=== PATIENT | female | born 1990 | race Two or more races ===

== ENCOUNTER 2024-06-01 20:32 | Observation (INO) | payer MEDICAID, SELFPAY ==
[2024-06-01] VITALS (15 sets, daily range): BP systolic 115–138; BP diastolic 73–90; PULSE 64–85; RESP 16–99; TEMP 36.8; O2SAT 98; BMI 23.9; BMI 25.3
--- NOTE | 2024-06-01 18:45 | PC.NURSE ---
CALLED OB AND WAS TOLD FOR US TO CLEAR PT AND THEN SEND HER UP TO THEM.
--- NOTE | 2024-06-01 19:28 | EKG_ITS ---
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
[2024-06-01] MEDS: RINGERS LACTATED 1000 ML 1,000 ML 999 ML IV (21:38)
[2024-06-01 22:07] LABS: Collection Type, Urine Clean Catch
[2024-06-01 22:16] LABS: Basophils % (Auto) 0 % (0-2.5); Eosinophils # (Auto) 0.1 Thou/mm3 (0.0-0.5); Eosinophils % (Auto) 1 % (0-10); Hematocrit 35.3 % (36.0-46.0); Hemoglobin 12.1 g/dL (12.0-16.0); Immature Granulocytes % (Auto) 1 % (0-0); Immature Granulocytes Auto 0.06 Thou/mm3 (0.00-0.00); Lymphocytes # (Auto) 2.9 Thou/mm3 (1.0-4.8); Lymphocytes % (Auto) 29 % (10-50); Mean Corpuscular HGB Conc 34.3 g/dl (31.0-37.0); Mean Corpuscular Hemoglobin 32.5 pg (25.0-35.0); Mean Corpuscular Volume 95 fL (80-100); Monocytes # (Auto) 1.2 Thou/mm3 (0.0-0.8); Monocytes % (Auto) 12 % (0-12); Neutrophils # (Auto) 5.7 Thou/mm3 (1.8-7.7); Neutrophils % (Auto) 58 % (37-80); Nucleated Red Blood Cell % 0 /100 WBC (0); Platelet Count 227 Thou/mm3 (140-440); RDW Standard Deviation 43.8 fL (36.4-46.3); Red Blood Count 3.72 Miln/mm3 (4.00-5.20); White Blood Count 9.9 Thou/mm3 (3.6-11.0)
[2024-06-01 22:21] LABS: Bilirubin,Urine Negative (Negative); Blood,Urine Negative (Negative); Clarity,Urine Clear (Clear/Hazy); Color,Urine Lt-Yellow (Lt Yel-Yel); Glucose, Urine Negative (Negative); Ketones,Urine Negative (Negative); Leukocyte Esterase,Urine Negative (Negative); Nitrite,Urine Negative (Negative); Protein,Urine Negative (Neg - Trace); RBC,Urine < 1 /hpf (0-3); Specific Gravity,Urine 1.011 (1.001-1.035); Squamous Epithelial Cell,Urine 1 /hpf (0-5); Urobilinogen,Urine Negative mg/dL (0.0-1.0); WBC,Urine 1 /hpf (0-5)
[2024-06-01] MEDS: ACETAMINOPHEN 500 MG TABLET 1000 MG PO (22:42)
[2024-06-01] MEDS: RINGERS LACTATED 1000 ML 1,000 ML 100 ML IV (22:42)
[2024-06-01 22:43] LABS: Fibrinogen 392 mg/dL (175-375); INR 0.9 (0.9-1.3); Partial Thromboplastin Time 23.1 Seconds (22.0-36.0); Prothrombin Time 10.3 Seconds (9.0-12.2)
[2024-06-01 22:52] LABS: Creatinine,Random Urine 50 mg/dL (30-125); Protein Total, Random Urine 7 mg/dL (1-14)
[2024-06-01 23:49] LABS: Alanine Aminotransferase < 7 U/L (10-49); Albumin, Serum 3.8 gm/dL (3.5-5.0); Albumin/Globulin Ratio 1.3 (1.2-2.2); Alkaline Phosphatase 85 U/L (46-116); Anion Gap 10 (7-16); Aspartate Amino Transferase < 8 U/L (0-34); BUN/Creatinine Ratio 13 Ratio (12-20); Bilirubin,Total 0.6 mg/dL (0.3-1.2); Blood Urea Nitrogen 8 mg/dL (9-23); Calcium 9.6 mg/dL (8.3-10.6); Calcium (Corrected) 9.8 mg/dL (8.5-10.1); Carbon Dioxide 23.7 mMol/L (20.0-31.0); Chloride 108 mMol/L (98-107); Creatinine (Component) 0.6 mg/dL (0.6-1.3); Estimated Creatinine Clearance 121.9 mL/min (>60); Globulin 2.9 gm/dL (2.3-3.5); Glucose 89 mg/dL (74-106); Osmolality,Calculated 280 (275-295); Potassium 4.1 mMol/L (3.4-5.1); Sodium 142 mMol/L (136-145); Total Protein 6.7 gm/dL (5.7-8.2); eGFR > 60 See Note
[2024-06-02 00:16] LABS: LDH (Lactate Dehydrogenase) 152 U/L (120-246); Uric Acid 4.7 mg/dL (3.1-7.8)
--- NOTE | 2024-06-02 05:44 | PD.EDHA ---
ED Headache RME/HPI General Chief Complaint: Headache Stated Complaint: BLURRY VISION, SEVERE HEADACHE, PREG 31WKS Time Seen by Provider: 06/01/24 19:28 Arrival date/time: 34F with history of gestational HTN presents to ED with 1 day of TYLER, blurry vision, and generalized body paresthesia, as well as SOB and cough. Patient denies AMS, seizures, and slurred speech. Mild pelvic pain, but patient denies vaginal bleeding and dysuria. Patient is currently 31 weeks . Limitations: no limitations Related Data Home Medications ?Medication ?Instructions ?Recorded ?Confirmed aspirin 81 mg tablet,delayed 81 mg PO QDAY 05/10/19 06/01/24 release vit no.133-ferrous 1 tab PO QDAY 05/10/19 06/01/24 fumarate 28 mg-folic acid 800 mcg tablet () nitrofurantoin 100 mg PO Q12H UTI 06/01/24 06/01/24 monohydrate/macrocrystals 100 mg capsule Previous Rx's ?Medication ?Instructions ?Recorded vit no.95-ferrous 1 tab PO QDAY #90 tabs 12/16/23 fumarate 28 mg-folic acid 800 mcg tablet () Allergies Allergy/AdvReac Type Severity Reaction Status Date / Time No Known Allergies Allergy Unknown Verified 06/01/24 20:56 Review of Systems Review of Systems Systems Reviewed: All systems reviewed, normal except as documented Constitutional Constitutional: Reports system reviewed and no additional complaints, except as documented, Reports as per HPI, Denies fever(s) and Reports headache(s) Eyes Eyes: Reports as per HPI and Reports blurry vision ENT Ears, Nose, Mouth, and Throat: Denies disequilibrium and Reports headache(s) Cardiovascular Cardiovascular: Reports system reviewed and no additional complaints, except as documented, Denies chest pain and Reports dyspnea Respiratory Respiratory: Reports system reviewed and no additional complaints, except as documented, Reports as per HPI, Reports cough and Reports dyspnea Gastrointestinal Gastrointestinal: Reports system reviewed and no additional complaints, except as documented, Denies abdominal pain, Denies nausea and Denies vomiting Musculoskeletal Musculoskeletal: Reports tingling Neurologic Neurologic: Reports system reviewed and no additional complaints, except as documented, Reports as per HPI, Denies confusion, Denies disequilibrium, Reports headache(s) and Reports tingling Psychiatric Psychiatric: Denies confusion Past Medical History Past Medical History NEUROLOGIC: Negative Neurological Disorders CARDIAC: Positive Cardiac Disorders and Hypertension (GHTN); Negative Congestive Heart Failure RESPIRATORY: Negative Chronic Obstructive Pulmonary Disease (COPD) GASTROINTESTINAL: Negative Gastrointestinal Disorders, Hepatitis or Colorectal Cancer GENITOURINARY: Negative Genitourinary Disorders, Renal Disease or Prostate Cancer REPRODUCTIVE: Negative Breast Cancer or Testicular Cancer MUSCULOSKELETAL: Negative Musculoskeletal Disorders or Bone Cancer ENDOCRINE: Negative Endocrine Disorders, Diabetes Mellitus Type 1 or Diabetes Mellitus Type 2 HEMATOLOGIC: Positive Blood Disorders and Anemia OTHER HISTORY: Positive Blood Transfusions (PP HEMORRHAGE WITH LAST DELIVERY); Negative Hospitalization, Autoimmune Disease, Down Syndrome, Developmental Delay, Shingles, Falls, Blood Transfusion Reaction, Anesthesia Reactions, Organ Transplant, Chemotherapy, Radiation Therapy, Hyperbaric Therapy, MRSA, VRSA, Vancomycin-Resistant Enterococci, Human Immunodeficiency Virus (HIV), Chicken Pox, Measles, Mumps, Rubella (Malay Measles), Pertussis, Clostridium Difficile, Cancer, Breast Cancer, Cervical Cancer, Colorectal Cancer, Lung Cancer, Ovarian Cancer, Prostate Cancer or Testicular Cancer Family History FAMILY HISTORY: Negative Family Psychiatric Problems, Family Respiratory Disorders, Family Cardiac Disorders, Family Gastrointestinal Problems, Family Cancer, Family Surgery or Family Anesthesia Reaction Surgical History SURGICAL: Negative Section or Organ Transplant Social History SMOKING STATUS: Former smoker Travel History EBOLA RISK: No ED Exam General Limitations: Present no limitations General appearance: Present alert and in no apparent distress Head Head exam: Present atraumatic Eye Eye exam: Present normal appearance, PERRL and EOMI ENT ENT exam: Present normal exam, normal oropharynx and mucous membranes moist Neck Neck exam: Present normal inspection, full ROM and trachea midline Chest Chest inspection: Present normal inspection and symmetric chest wall rise Respiratory Respiratory exam: Present normal lung sounds bilaterally Cardiovascular Cardiovascular exam: Present regular rate, normal rhythm and normal heart sounds Abdominal Exam Abdominal exam: Present soft and normal bowel sounds Extremities Exam Extremities exam: Present normal inspection and full ROM Back Exam Back exam: Present normal inspection and full ROM Neurological Exam Neurological exam: Present alert, oriented X3 and CN II-XII intact Psychiatric Psychiatric exam: Present normal affect and normal mood Skin Skin exam: Present warm, dry, intact and normal color Course Quality Measures none Orders Category Date Time Status Place in Observation Status Routine Admission 06/01/24 20:32 Active Bedside Influenza A&B Antigen Test NOW Care 06/01/24 19:28 Completed Continuous Monitoring Routine Care 06/01/24 20:56 Ordered DC IV X1 Care 06/02/24 00:06 Completed EKG (ED ONLY) *Do not use* NOW Care 06/01/24 19:28 Completed Insert IV NOW Care 06/01/24 21:28 Completed Non-Stress Test Now Care 06/01/24 20:56 Completed Sterile Vaginal Exam Routine Care 06/01/24 Ordered Discharge Routine Discharge 06/02/24 00:07 Active EKG (ED Only) Stat Exams 06/01/24 19:28 Draft CBC Stat Lab 06/01/24 21:45 Completed Comprehensive Metabolic Panel Stat Lab 06/01/24 21:45 Completed Creatinine,Random Urine Stat Lab 06/01/24 21:45 Completed Fibrinogen Stat Lab 06/01/24 21:45 Completed LDH (Lactate Dehydrogenase) Stat Lab 06/01/24 21:45 Completed Partial Thromboplastin Time Stat Lab 06/01/24 21:45 Completed Protein Total, Random Urine Stat Lab 06/01/24 21:45 Completed Prothrombin Time with INR Stat Lab 06/01/24 21:45 Completed Uric Acid Stat Lab 06/01/24 21:45 Completed Urinalysis Stat Lab 06/01/24 21:45 Completed Acetaminophen Tab [Tylenol ES Tab] Med 06/01/24 22:27 Discontinued 1,000 mg PO X1 ONE Acetaminophen Tab [Tylenol Tab] Med 06/01/24 21:36 Discontinued 1,000 mg PO X1 ONE Ringers Lactated 1000 ml [Lactated Ringers] 1,000 ml Med 06/01/24 21:30 Discontinued IV 100 mls/hr Ringers Lactated 1000 ml [Lactated Ringers] 1,000 ml Med 06/01/24 21:28 Discontinued IV 999 mls/hr Vital Signs Vital signs: Vital Signs Temperature 98.3 F 06/01/24 19:20 Pulse Rate 85 06/01/24 19:20 Respiratory Rate 18 06/01/24 19:20 Blood Pressure 138/87 H 06/01/24 19:20 Pulse Oximetry (%) 98 06/01/24 19:20 Oxygen Delivery Method Room Air 06/01/24 19:20 O2 at 98% on RA and WNLs Headache MDM Narrative MDM Narrative:: 34F with history of gestational HTN presents to ED with 1 day of TYLER, blurry vision, and generalized body paresthesia, as well as SOB and cough. Patient denies AMS, seizures, and slurred speech. Mild pelvic pain, but patient denies vaginal bleeding and dysuria. Patient is currently 31 weeks . Physical exam reveals normal pupil response and EOM. CN II-XII grossly intact. No ab tenderness. Gait normal. Clear lungs and normal WOB. Patient is afebrile, calm, and alert. EKG is NSR. Swabs neg. Patient cleared upstairs to OB for possible pre-eclampsia symptoms. Patient data External records reviewed:: [facility] previous records Clinical information provided by:: patient Social determinants that could affect healthcare access:: none Patient has the following chronic illnesses:: gestational HTN How is presenting disease/condition affected by chronic disease/condition?: exacerbated by Evaluation data The following diagnostics were reviewed and interpreted by me:: lab results and EKG tracing(s) Lab and/or radiology exams considered but not ordered:: ordered Interpretation Summary: above Medications / Prescriptions Medications or Prescriptions considered but not ordered:: ordered Medication administrations:: Medication Administration History Discontinued Medications Acetaminophen (Acetaminophen 325 Mg Tablet) 1,000 mg PO X1 ONE Stop: 06/01/24 21:37 Acetaminophen (Acetaminophen 500 Mg Tablet) 1,000 mg PO X1 ONE Stop: 06/01/24 22:28 Last Admin: 06/01/24 22:42 Dose: 1,000 mg Documented By: KG Lactated Ringer's (Lactated Ringers) 1,000 mls @ 999 mls/hr IV .Q1H1M ONE Stop: 06/01/24 22:28 Last Admin: 06/01/24 21:38 Dose: 999 mls/hr Documented By: KG Lactated Ringer's (Lactated Ringers) 1,000 mls @ 100 mls/hr IV .Q10H BRITTA Stop: 07/01/24 21:29 Last Admin: 06/01/24 22:42 Dose: 100 mls/hr Documented By: KG above Consultations Consultation(s) initiated? (list below): No Diagnosis Differential diagnosis headache: migraine, tension headache, subarachnoid hemorrhage, headache, meningitis, sinusitis, postconcussion syndrome and other (medical screening exam; pre-eclampsia) Most likely diagnosis given after review of the tests above:: medical screening exam Admission Indicated Admission indicated?: not indicated Admission Request Was there a request for admission?: No Disposition Plan Disposition Plan: Discharge Discharge Attestation Discharge Attestation: The patient and all family members were given an opportunity to ask questions and understood the discharge instructions. Discharge instructions specifically effects, indications for sooner follow up or return to the emergency department, and the expected course of current diagnosis. Patient condition: Stable Discharge Plan Plan Patient Disposition: HOME (Self Care) Disposition Comment: Stable Prescriptions/Referrals Prescriptions/Med Rec: No Action aspirin 81 mg Tablet,Delayed Release (Dr/Ec) 81 mg PO QDAY 28-800 mg-mcg Tablet 1 tab PO QDAY PNV cmb#95-ferrous fumarate-FA [] 28 mg iron- 800 mcg tablet 1 tab PO QDAY Qty: 90 0RF nitrofurantoin monohyd/m-cryst 100 mg capsule 100 mg PO Q12H Patient Comments: TAKE 1 CAPSULE BY MOUTH TWICE DAILY WITH FOOD Patient/Caregiver Discharge Instructions Discharge Activity: activity as tolerated and resume usual activities Other Discharge Activity Instructions:: Follow up with your OB provider tomorrow, 06/02/24. Increase fluids. Take all meds as ordered. Keep all ob/dr appointments, daily kick counts. Return as instructed. Education Materials: Kick Counts, Understanding Preeclampsia, Understanding Labor, Antepartum Discharge Print Language: Faroese Activity Restrictions/Additional Instructions: Please follow-up with PCP within 24-48 hours and return immediately if symptoms worsen. Stand Alone Forms: Sneha Award Info., Patient Portal Info Letter Discharge Order Discharge Orders: Discharge (Routine); Ordered 06/02/24 Ordered By: Zac Carter
== END 2024-06-02 00:20 | disposition home or self-care (01) ==
PROVIDERS: Admitting Provider Specialist; PCP Family Medicine; Visit Provider Specialist
DX: O26.893 Other specified pregnancy related conditions, third trimester (principal); Z3A.31 31 weeks gestation of pregnancy; R05.9 Cough, unspecified; R51.9 Headache, unspecified; H53.8 Other visual disturbances; R20.2 Paresthesia of skin; R06.02 Shortness of breath; O13.3 Gestational [pregnancy-induced] hypertension without significant proteinuria, third trimester
CPT/HCPCS: 36415; 59025; 59899; 80053; 81001; 82570; 83615; 84156; 84550; 85025; 85384; 85610; 85730; 87400; 93005; 99283; J7120; A9270

== ENCOUNTER 2024-06-20 13:03 | Outpatient (AMB) | payer MEDICAID, SELFPAY ==
[2024-06-20 13:28] VITALS: BP 121/80; PULSE 73; RESP 14; TEMP 36.4; O2SAT 98; BMI 25.2
--- NOTE | 2024-06-20 13:28 | AMB.OBINITIA ---
Vital Signs 06/20/24 13:28 06/20/24 13:38 Height 1.6 m Height Method Stated Weight 64.467 kg Weight Measurement Method Standing Scale BMI 25.2 BP 121/80 121/80 Blood Pressure Source Automatic Cuff Blood Pressure Location Left Upper Arm Position Sitting Respiration 14 14 Pulse 73 73 Pulse Source Monitor Temp 97.6 F 97.6 F Temp Source Oral Pulse Oximetry (%) 98 98 Oxygen Delivery Method Room Air Allergies/Home Meds Allergies & Medications Allergies No Known Allergies Allergy (Unknown, Verified 06/20/24 13:29) Medication Reconciliation aspirin 81 mg tablet,delayed release 81 mg PO QDAY 05/10/19 [History Confirmed 06/20/24] vit no.95-ferrous fumarate 28 mg-folic acid 800 mcg tablet () 1 tab PO QDAY #90 tabs 12/16/23 [Rx Confirmed 06/20/24] nitrofurantoin monohydrate/macrocrystals 100 mg capsule 100 mg PO Q12H UTI 06/01/24 [History Confirmed 06/20/24] Intake Visit Data Collection New Patient or Established: Established Patient (seen at [facility] within 3 years) Reason for Visit:: CARE TRANSFER Seen by Clinical Staff ONLY (RN/MA): No Lodge Officer Required: No Do You Feel Safe at Home: Yes Authorities Contacted: N/A PCP or OBGYN visit in last 3 months: Yes Hx Now: Yes Are you currently on any form of Control: No Last menstrual period: 10/24/23 Pain Present Currently: Yes Pain Location: Head Pain Scale Used: Colón-Graham/Numerical Pain scale:: 6 Smoking Status Smoking Status: Former smoker Questionnaires Covid-19 Vaccine Questionnaire Has patient been vacinated for Covid-19 Have you been vacinated for Covid-19: No PHQ-9 PHQ-2 Over the last 2 weeks, how often have you been bothered by any of the following problems? 1. Little interest or pleasure in doing things: not at all 2. Feeling down, depressed, or hopeless: not at all Total score: 0 PHQ-9 3. Trouble falling or staying asleep, or sleeping too much: Not at all 4. Feeling tired or having little energy: Not at all 5. Poor appetite or overeating: Not at all 6. Feeling bad about yourself - or that you are a failure or have let yourself or your family down: Not at all 7. Trouble concentrating on things, such as reading the newspaper or watching television: Not at all 8. Moving or speaking so slowly that other people could have noticed? - Or the opposite - being so fidgety or restless that you have been moving around a lot more than usual: not at all 9. Thoughts that you would be better off or of hurting yourself in some way: Not at all Total score: 0 Source: Developed by Drs. Amilcar Chawla, Danielle Cagle, Bhargav Marlow and colleagues, with an educational marion from [employer]. Depression screen completed yes Social History Living Situation History Lives With: Family Housing: Apartment Tobacco History Smoking Status: Former smoker Second Hand Smoke Exposure: Yes Alcohol History Alcohol Intake: Never Domestic Abuse History Do You Feel Safe at Home: Yes Past Medical History Past Medical History Have you ever been diagnosed with any of the following: Neurological Problems Cerebrovascular Accident (CVA): No Transient Ischemic Attacks (TIA): No Dementia: No Alzheimer's Disease: No Parkinson's Disease: No Brain Tumor: No Meningitis: No Seizures: No Guillain-Rochester Syndrome: No Cardiology Problems Myocardial Infarction: No Atrial Fibrillation: No Angina: No Heart Murmur: No Congestive Heart Failure: No Hypertension: Yes (GHTN) Respiratory Problems Chronic Obstructive Pulmonary Disease (COPD): No Orthopnea: No Hx Cough: No Cough: No Wheezing: No Chest Deformities: No Smoking: No Smoking Cessation Counseling: No Smoking Exposure: No Tobacco Use: No Stomache/Intestinal Problems Liver Cancer: No Hepatitis: No Gall Bladder Disease: No Colorectal Cancer: No Genital/Urinary Problems Chronic Kidney Disease: No Renal Disease: No Reproductive Problems Breast Cancer: No Endometriosis: No Fibroids: No Genital Herpes: No Gonorrhea: No Pelvic Inflammatory Disease: No Polycystic Ovarian Syndrome: No Previous Pregnancies: Yes Syphilis: No Uterine Prolapse: No Musculoskeletal Problems Muscular Dystrophy: No Myasthenia Gravis: No Bone Cancer: No Head,Eye,Nose,Throat Problems Cataracts: No Glaucoma: No Blind: No Retinal Detachment: No Endocrine Problems Diabetes Mellitus Type 1: No Diabetes Mellitus Type 2: No Blood Problems Anemia: Yes Psychologic Problems Schizophrenia: No Bipolar Disorder: No Depression: No Other Problems Hospitalization: No Down Syndrome: No Developmental Delay: No Shingles: No Falls: No Blood Transfusions: Yes (PP HEMORRHAGE WITH LAST DELIVERY) Blood Transfusion Reaction: No Anesthesia Reactions: No Organ Transplant: No Chemotherapy: No Radiation Therapy: No Hyperbaric Therapy: No MRSA: No VRSA: No Vancomycin-Resistant Enterococci: No Human Immunodeficiency Virus (HIV): No Chicken Pox: No Measles: No Mumps: No Rubella (Nepali Measles): No Pertussis: No Clostridium Difficile: No Cancer: No Cervical Cancer: No Lung Cancer: No Ovarian Cancer: No OB Initial Visit Menstrual History Menstrual reliability: definite Flow: normal Menstrual regularity: regular Monthly: Yes Age at menarche: 15 On control pills at conception: No Associated symptoms (LMP): Reports nausea, irritability and bloating OB History : 7 Para: 5 Hx # Pregnancies: 2 Hx Total # of Abortions (Spontaneous & Elective): 1 # of Living Children: 5 Delivery History 1st : Child's name: NARINDER date: 09/24/10 sex: male Delivery type: vaginal Delivery complications: NONE History of depression before or after : No 2nd : Child's name: NOAH date: 05/08/12 sex: female Delivery type: vaginal Delivery complications: NONE History of depression before or after : No 3rd : Child's name: VANESSA date: 07/23/16 sex: female Delivery type: vaginal Delivery complications: NONE History of depression before or after : No 4th : Child's name: YURIY date: 08/06/16 sex: female Delivery type: vaginal Delivery complications: NONE History of depression before or after : No Additional comments: HEMORRHAGE 5th : Child's name: VINCENT date: 05/11/19 sex: male Delivery type: vaginal Delivery complications: NONE History of depression before or after : No Infection History & Risk Evaluation History of STDs: none Genetic Screening & History Genetic Screening/Teratology Counseling - Includes patient, baby's father, or anyone in either family with: 1. Patient's age 35 years or older as of estimated date of delivery: No 2. Thalassemia (Citizen Of [place], Tajik, Mediterranean, or Background); MCV less than 80: No 3. Neural Tube Defect (Meningomyelocele, Spina Bifida, or Anencephaly): No 4. Congenital Heart Defect: No 5. Down Syndrome: No 6. Arnulfo-Sachs (Ashkenazi Episcopal, Cajun, Czech Citizen Of [place]): No 7. Sony Disease (Ashkenazi Episcopal): No 8. Familial Dysautonomia (Ashkenazi Episcopal): No 9. Sickle Cell Disease or Trait (): No 10. Hemophilia or other blood disorders: No 11. Muscular Dystrophy: No 12. Cystic Fibrosis: No 13. [place]'s Chorea: No 14. Mental Retardation/Autism: No 15. Other inherited genetic or chromosomal disorder: No 16. Maternal Metabolic Disorder (EG,TYPE 1 Diabetes, PKU): No 17. Patient or baby's father had a child with defects not listed above: No 18. Recurrent loss or a stillbirth: No 19. Medications (including supplements, vitamins, herbs or otc drugs)/illicit/recreational drugs/alcohol since last menstrual period: No 20. Any other: No Infection History 1. Live with someone with TB or exposed to TB: No 2. Rash or viral illness since last menstrual period: No 3. Hepatitis B,C: No Other (see comments) Source: [employer] Review of Systems Gastrointestinal Gastrointestinal: Reports bloating and Reports nausea Psychiatric Psychiatric: Reports irritability Office Procedures OB Clinic LOC & Office Proc's Nursing/Assessment Patient Status: Established Patient OB Clinic Nursing Assessment: Medication Reconciliation, Update PMH in EMR and Vital Signs OB Clinic Coordination of Care: Complex Care and Chronic Disease 1-5, Consent,records obtained, informed consent, Education Simp Pt/Fam, Lab and Imaging orders, Results/Orders obtained and Staff clarify orders Special Needs: Heart tones Miscellaneous Interventions: Blood/Urine Collection Established Patient Charge Established Patient Point Assignment: 165
--- NOTE | 2024-06-20 13:35 | AMB.OBINITIA ---
Vital Signs 06/20/24 13:28 06/20/24 13:38 Height 1.6 m Height Method Stated Weight 64.467 kg Weight Measurement Method Standing Scale BMI 25.2 BP 121/80 121/80 Blood Pressure Source Automatic Cuff Blood Pressure Location Left Upper Arm Position Sitting Respiration 14 14 Pulse 73 73 Pulse Source Monitor Temp 97.6 F 97.6 F Temp Source Oral Pulse Oximetry (%) 98 98 Oxygen Delivery Method Room Air Allergies/Home Meds Allergies & Medications Allergies No Known Allergies Allergy (Unknown, Verified 06/20/24 13:29) Medication Reconciliation aspirin 81 mg tablet,delayed release 81 mg PO QDAY 05/10/19 [History Confirmed 06/20/24] vit no.95-ferrous fumarate 28 mg-folic acid 800 mcg tablet () 1 tab PO QDAY #90 tabs 12/16/23 [Rx Confirmed 06/20/24] nitrofurantoin monohydrate/macrocrystals 100 mg capsule 100 mg PO Q12H UTI 06/01/24 [History Confirmed 06/20/24] Intake Visit Data Collection New Patient or Established: New Patient (never been to [facility]) Reason for Visit:: OOB check Do You Feel Safe at Home: Yes Authorities Contacted: N/A PCP or OBGYN visit in last 3 months: Yes Smoking Status Smoking Status: Former smoker Questionnaires Social History Living Situation History Housing: Apartment Tobacco History Smoking Status: Former smoker Alcohol History Alcohol Intake: Never Domestic Abuse History Do You Feel Safe at Home: Yes Past Medical History Past Medical History Have you ever been diagnosed with any of the following: Cardiology Problems Congestive Heart Failure: No Hypertension: Yes (GHTN) Respiratory Problems Chronic Obstructive Pulmonary Disease (COPD): No Stomache/Intestinal Problems Hepatitis: No Colorectal Cancer: No Genital/Urinary Problems Renal Disease: No Reproductive Problems Breast Cancer: No Musculoskeletal Problems Bone Cancer: No Endocrine Problems Diabetes Mellitus Type 1: No Diabetes Mellitus Type 2: No Blood Problems Anemia: Yes Other Problems Hospitalization: No Down Syndrome: No Developmental Delay: No Shingles: No Falls: No Blood Transfusions: Yes (PP HEMORRHAGE WITH LAST DELIVERY) Blood Transfusion Reaction: No Anesthesia Reactions: No Organ Transplant: No Chemotherapy: No Radiation Therapy: No Hyperbaric Therapy: No MRSA: No VRSA: No Vancomycin-Resistant Enterococci: No Human Immunodeficiency Virus (HIV): No Chicken Pox: No Measles: No Mumps: No Rubella (Macedonian Measles): No Pertussis: No Clostridium Difficile: No Cancer: No Cervical Cancer: No Lung Cancer: No Ovarian Cancer: No History of Present Illness HPI Narrative 34-year-old 7 para 5 for first visit for [facility] OB clinic. Last. Was October 24, 2023. Estimated due date is August 03, 2024. Patient has a history of gestational hypertension with her last 2 pregnancies. And patient was induced because of high blood pressure. Patient is currently taking low-dose baby aspirin. She was seen in the ER June 19 for headache. Treated with IV hydration and an NST and sent home. Denies epigastric pain today. Vision is clear today. Headache is improved today. Patient has not eaten all day though. Reports good movement. Denies labor complaints. Patient's next MFM appointment is July 03. Patient will do a medical release of records today. Reports fetus is active, denies leaking or bleeding. No labs or chart to review today. OB Initial Visit OB Flowsheet OB Flowsheet Initial Weight: Not Recorded Date <del>?</del> EGA Weight Edema CTX Effacement BP Fundal ht Pres Dilation Effacement Station Visit Note Alb Glu FHR Mov 06/20/24 <del>?</del> 34w 2d 64.467 kg absent absent 121/80 121/80 34 cephalic 34-year-old 7 para 5 OB transfer from [facility] without records. History of gestational hypertension this . Patient's been compliant with low-dose baby aspirin her blood pressure today 120/81. Patient was seen in the ER for headache and blurred vision on June 10. Treated with IV hydration and NST and sent home. Patient has a follow-up MFM appointment July 03. I will call for her previous MFM up consults. Discussed labor and kick count twice daily. Discussed danger signs and symptoms of worsening PIH symptoms. ER precautions given continue low-dose baby aspirin to 36 weeks. GBS next visit. Urine dips for urine at all visits. Return in a week for follow-up. Urine protien was negative, wbc/nitrite- 156 active Menstrual History Menstrual reliability: definite Flow: normal Menstrual regularity: regular Monthly: Yes OB History : 7 Para: 5 Hx # Pregnancies: 2 Hx Total # of Abortions (Spontaneous & Elective): 1 # of Living Children: 6 Infection History & Risk Evaluation History of STDs: none Review of Systems Review of Systems Systems Reviewed: All systems reviewed, normal except as documented Exam Narrative Physical exam: DTR 2+, no clonus, no edema, FH: 34, fht: 156 General Limitations: no limitations General Appearance: alert, in no apparent distress, comfortable, cooperative, healthy appearing, well developed and well groomed Chest Chest inspection: Present normal inspection and symmetric chest wall rise Resp Respiratory exam: Present normal lung sounds bilaterally Card Cardiovascular exam: Present regular rate, normal rhythm and normal heart sounds Abdominal Abdominal exam: Present soft (fh:34. fht: 156) and normal bowel sounds Psych Psychiatric exam: Present normal affect and normal mood Assessment & Plan Diagnosis / Problem List (1) Encounter for supervision of normal in multigravida in third trimester: Status: Acute Plan Discussed PIH precautions. labor precautions. No salt. Increase fluids. Discussed increasing protein diet and eating small meals every 2 hours. Keep MFM appointment for July 03. kick counts twice a day. Continue baby aspirin at 36 weeks. GBS next visit. Return in 1 week OB check. Urine dips for protein at each visit Additional Plan Follow Up: 1 Week (1 week ob check) Office Procedures OB Clinic LOC & Office Proc's Nursing/Assessment Patient Status: Established Patient OB Clinic Nursing Assessment: Medication Reconciliation, Update PMH in EMR and Vital Signs OB Clinic Coordination of Care: Complex Care and Chronic Disease 1-5, Consent,records obtained, informed consent, Education Simp Pt/Fam, Lab and Imaging orders, Results/Orders obtained and Staff clarify orders Special Needs: Heart tones Miscellaneous Interventions: Blood/Urine Collection Established Patient Charge Established Patient Point Assignment: 165
[2024-06-20 13:38] VITALS: BP 121/80; PULSE 73; RESP 14; TEMP 36.4; O2SAT 98
== END 2024-06-20 13:48 | disposition home or self-care (01) ==
LOC: HODSOBC 13:03
PROVIDERS: PCP Advanced Practice Midwife; Referring Provider Advanced Practice Midwife; Supervising Provider Obstetrics & Gynecology; Visit Provider Advanced Practice Midwife

== ENCOUNTER 2024-06-24 12:57 | Inpatient (IN) | payer MEDICAID, SELFPAY ==
[2024-06-24] VITALS (90 sets, daily range): BP systolic 117–158; BP diastolic 74–105; PULSE 71–124; RESP 16–98; TEMP 36.4–36.8; O2SAT 90–100; BMI 26.0
[2024-06-24 15:09] LABS: Basophils % (Auto) 0 % (0-2.5); Eosinophils % (Auto) 0 % (0-10); Hematocrit 32.2 % (36.0-46.0); Hemoglobin 11.3 g/dL (12.0-16.0); Immature Granulocytes % (Auto) 1 % (0-0); Immature Granulocytes Auto 0.06 Thou/mm3 (0.00-0.00); Lymphocytes # (Auto) 2.2 Thou/mm3 (1.0-4.8); Lymphocytes % (Auto) 19 % (10-50); Mean Corpuscular HGB Conc 35.1 g/dl (31.0-37.0); Mean Corpuscular Hemoglobin 31.7 pg (25.0-35.0); Mean Corpuscular Volume 90 fL (80-100); Monocytes # (Auto) 1.1 Thou/mm3 (0.0-0.8); Monocytes % (Auto) 9 % (0-12); Neutrophils # (Auto) 8.2 Thou/mm3 (1.8-7.7); Neutrophils % (Auto) 71 % (37-80); Nucleated Red Blood Cell % 0 /100 WBC (0); Platelet Count 196 Thou/mm3 (140-440); RDW Standard Deviation 39.8 fL (36.4-46.3); Red Blood Count 3.57 Miln/mm3 (4.00-5.20); White Blood Count 11.6 Thou/mm3 (3.6-11.0)
[2024-06-24 15:19] LABS: Creatinine,Random Urine 51 mg/dL (30-125); Protein Total, Random Urine 14 mg/dL (1-14)
[2024-06-24 15:28] LABS: Fibrinogen 428 mg/dL (175-375); INR 0.9 (0.9-1.3); Partial Thromboplastin Time 23.3 Seconds (22.0-36.0); Prothrombin Time 10.4 Seconds (9.0-12.2)
[2024-06-24 15:42] LABS: Alanine Aminotransferase < 7 U/L (10-49); Albumin, Serum 4.1 gm/dL (3.5-5.0); Albumin/Globulin Ratio 1.4 (1.2-2.2); Alkaline Phosphatase 126 U/L (46-116); Anion Gap 10 (7-16); Aspartate Amino Transferase 17 U/L (0-34); BUN/Creatinine Ratio 13 Ratio (12-20); Blood Urea Nitrogen 9 mg/dL (9-23); Calcium 8.8 mg/dL (8.3-10.6); Calcium (Corrected) 8.8 mg/dL (8.5-10.1); Chloride 106 mMol/L (98-107); Creatinine (Component) 0.7 mg/dL (0.6-1.3); Estimated Creatinine Clearance 105.8 mL/min (>60); Globulin 2.9 gm/dL (2.3-3.5); Glucose 74 mg/dL (74-106); LDH (Lactate Dehydrogenase) 203 U/L (120-246); Osmolality,Calculated 271 (275-295); Potassium 4.1 mMol/L (3.4-5.1); Sodium 137 mMol/L (136-145); Uric Acid 5.1 mg/dL (3.1-7.8); eGFR > 60 See Note
[2024-06-24] MEDS: BETAMET ACET/BETAMET NA PH (Celestone) 6 MG/ML VIAL 12 MG IM (16:27)
[2024-06-24] MEDS: RINGERS LACTATED 1000 ML 1,000 ML 999 ML IV (16:46)
[2024-06-24] MEDS: HYDROcodone/APAP 5/325 TABLET 2 TAB PO (17:06)
[2024-06-24 17:10] LABS: Amphetamine/Metham Scrn,Ur OB Negative (Negative); Benzoylecgonine Screen, Ur OB Negative (Negative); Opiate Screen,Urine OB Negative (Negative); THC Screen,Urine OB Negative (Negative)
--- NOTE | 2024-06-24 18:22 | XR_ITS ---
Examination: Complete OB ultrasound greater than 14 weeks Date and time of exam: June 24, 2024 2128 hours INDICATIONS: Pelvic contractions beginning 2 days ago Findings: Viable intrauterine single fetus with single amniotic sac presentation cephalic Cardiac motion 180 BPM Placenta posterior grade 2 Umbilical cord insertion seen Amniotic fluid index 7.0 cm Cervix 1.9 cm Ovaries obscured by the uterus. Composite estimated gestational age based on BPD, head circumference, abdominal circumference, femur length is 34 weeks 4 days Estimated weight 2322.9 g. Survey of intracranial anatomy, spinal anatomy, abdominal anatomy, four-chamber heart performed with no abnormalities identified. Impression: Viable intrauterine gestation cephalic presentation.
[2024-06-24] MEDS: RINGERS LACTATED 1000 ML 1,000 ML 100 ML IV (18:45)
[2024-06-24] MEDS: TERBUTALINE SULF INJ 1 MG/ML VIAL 0.25 MG SC (18:56)
--- NOTE | 2024-06-24 19:45 | ESHP_ITS ---
Documentation for date of: 06/24/24 OB Labor/Induct. HPI History of Present Illness : 7 Term pregnancies: 5 pregnancies: 2 Living children: 5 History of Abortions: Spontaneous and Elective: 1 History of Vaginal deliveries: 5 History of sections: No History of : No KIMBERLY: 08/04/24 Gestational Age (weeks): 34 Gestational Age (days): 0 History of present illness: The patient is a 34-year-old -0-1-5 at 34-0/7 weeks who presented to triage with a headache. She has a history of PIH and her last 2 deliveries. She is on baby aspirin this . All care is with [facility] and no records are available at the time of admission. She had one visit to the [place] [facility] with Rosa Maria Robles a few days ago. Patient's PIH labs were normal and her blood pressures were stable. She was still reporting a headache requiring Colebrook. The patient was jason every 2 to 3 minutes. As she is and having regular uterine contractions she was admitted for observation. She was given a dose of betamethasone and a strep culture was ordered. Patient's cervical exam was fingertip dilated in OB triage. History of Present Adequate Care: No (couldn't esablish care until got in with rosa maria naylor) Obstetrical complications: other Narrative: History of -induced hypertension in 2 pregnancies Labs Maternal Blood Type: B Pos Labs: Unknown: RPR, Hepatitis B, Rubella Titre, HIV, Chlamydia, Gonorrhea and Group Beta Strep Narrative: No records are available at the time of admission from [facility] Review of Systems Review of Systems Narrative Review of Systems: Patient reports a headache. She is light sensitive. She denies a history of migraines. She denies nausea vomiting diarrhea fevers chills no sore throats or signs of a flu. No right upper quadrant pain. She reports good movement. She is feeling these regular contractions. She denies loss of fluid or heavy vaginal bleeding. Past Medical History Surgical History SURGICAL: Negative Section Meds Home Medications and Allergies Home Medications ?Medication ?Instructions ?Recorded ?Confirmed ?Type aspirin 81 mg tablet,delayed 81 mg PO QDAY 05/10/19 History release nitrofurantoin 100 mg PO Q12H UTI 06/01/24 06/20/24 History monohydrate/macrocrystals 100 mg capsule Allergies Allergy/AdvReac Type Severity Reaction Status Date / Time No Known Allergies Allergy Unknown Verified 06/24/24 13:06 OB Exam Physical Exam Vital signs: Temp Pulse Resp BP Pulse Ox 97.5 F 96 16 136/81 H 100 06/24/24 13:08 06/24/24 19:37 06/24/24 13:08 06/24/24 19:37 06/24/24 19:40 Routine Abdominal Exam Abdominal: Present soft Detailed Labor and Delivery Exam Effacement (%): 50 Cervix position: posterior station: -4 Consistency: firm Membranes: intact monitor accelerations: 15x15 monitor decelerations: None extermination inspector variability: Moderate (11-25) Contraction duration (sec): 20 to 30 seconds Tachysystole: No Contraction intensity: Mild OB Results Labs 06/24/24 14:40 06/24/24 14:40 Labs: Short CBC 06/24/24 Range/Units 14:40 WBC 11.6 H (3.6-11.0) Thou/mm3 Hgb 11.3 L (12.0-16.0) g/dL Hct 32.2 L (36.0-46.0) % Plt Count 196 D (140-440) Thou/mm3 BMP 06/24/24 14:40 Sodium 137 Potassium 4.1 Chloride 106 Carbon Dioxide 21.0 BUN 9 Creatinine 0.7 Glucose 74 Calcium 8.8 Liver Function 06/24/24 Range/Units 14:40 Total Bilirubin 1.0 (0.3-1.2) mg/dL AST 17 (0-34) U/L ALT < 7 L (10-49) U/L Alkaline Phosphatase 126 H (46-116) U/L Albumin 4.1 (3.5-5.0) gm/dL Drug screen negative ultrasound pending at the time of dictation urine protein negative OB Assessment & Plan Assessment and Plan (1) Headache: Status: Acute Assessment and plan: No signs of severe preeclampsia. Tylenol or Colebrook as needed (2) 34 weeks gestation of : Status: Acute (3) contractions: Status: Acute Assessment and plan: Admit for observation. Betamethasone given repeat in 24 hours. Ultrasound ordered for weight position and AVERY. Consider terbutaline or magnesium toco lysis. Group B strep swab ordered. (1) Headache Qualifiers: Headache type: tension-type Headache chronicity pattern: chronic headache I ntractability: not intractable Qualified Code(s): G44.229 - Chronic tension- type headache, not intractable
[2024-06-24] MEDS: DiphenhydrAMINE INJ 50 MG/ML VIAL 25 MG IVP (20:01)
[2024-06-24] MEDS: METOCLOPRAMIDE INJ 5 MG/ML VIAL 2 ML 10 MG IVP (20:02)
--- NOTE | 2024-06-24 22:25 | PD.LDPN ---
Documentation for date of: 06/24/24 at 2225 OB Labor Progress Note Pain Control Comments: Patient continues to have contractions she rates a 3 out of 10. She had 1 dose of terbutaline. I do not want to give her nifedipine as it causes a headache. We will do low-dose magnesium overnight in order to get a second dose of steroids on board tomorrow. Pelvic Exam Dilation (cm): Fingertip Effacement (%): 50 station: -4 Contractions Monitor mode: External Contraction frequency: Every 3 to 4 minutes Contraction intensity: Mild Status status: Category l Assessment and Plan Comments: Magnesium toco lysis as patient 34 weeks. Trying to get second dose of steroids on board. If no cervical change tomorrow will DC magnesium and disc to discharge patient home on pelvic rest.
[2024-06-24] MEDS: MAGNESIUM SULF 20 GM IVPB 20 GM/500 ML BAG IV (22:30)
[2024-06-24 23:46] LABS: Magnesium 2.1 mg/dL (1.6-2.6)
[2024-06-25] VITALS (268 sets, daily range): BP systolic 122–159; BP diastolic 70–110; PULSE 72–142; RESP 16–19; TEMP 36.4–37; O2SAT 91–100
[2024-06-25] MEDS: RINGERS LACTATED 1000 ML 1,000 ML 100 ML IV ×2 (02:44→11:43)
[2024-06-25] MEDS: HYDROcodone/APAP 10/325 TAB PO (03:12)
[2024-06-25] MEDS: ACETAMINOPHEN IVPB 1,000 MG/100 ML VIAL 250 MG IV (07:47)
[2024-06-25 09:16] LABS: Magnesium 2.9 mg/dL (1.6-2.6)
[2024-06-25] MEDS: SUMAtriptan 25 MG TABLET PO (10:35)
[2024-06-25] MEDS: NIFEdipine 10 MG CAPSULE PO ×2 (12:48→19:29)
[2024-06-25] MEDS: HYDROcodone/APAP 5/325 TABLET 1 TAB PO ×2 (14:01→18:07)
--- NOTE | 2024-06-25 14:11 | XR_ITS ---
Examination: Complete OB ultrasound greater than 14 weeks Date and time of exam: June 25, 2024 1417 hours INDICATIONS: Pelvic contractions beginning 3 days ago Findings: Viable intrauterine single fetus with single amniotic sac presentation cephalic spine maternal left Cardiac motion 158 BPM Placenta right lateral grade 2 Umbilical cord insertion seen Amniotic fluid index 4.8 cm Cervix 2.2 cm Ovaries obscured by bowel gas. Composite estimated gestational age based on BPD, head circumference, abdominal circumference, femur length is 34 weeks 1 day Estimated weight 2399.4 g. Survey of intracranial anatomy, spinal anatomy, abdominal anatomy, four-chamber heart performed with no abnormalities identified. Impression: Viable intrauterine gestation cephalic presentation Amniotic fluid index 4.8 cm.
[2024-06-25] MEDS: BETAMET ACET/BETAMET NA PH (Celestone) 6 MG/ML VIAL 12 MG IM (16:44)
--- NOTE | 2024-06-25 19:12 | PD.LDPN ---
Documentation for date of: 06/25/24 OB Labor Progress Note Pain Control Pain control: tolerating well Pelvic Exam Dilation (cm): Fingertip Effacement (%): 50 station: -4 Contractions Monitor mode: External Contraction frequency: Every 3 to 4 minutes Contraction intensity: Mild Status status: Category l Assessment and Plan Comments: Evaluated at bedside, reports significant improvement in her headache. Cervical exam is unchanged. I discussed with her the option of staying here at the hospital overnight versus going home and the suggestion to continue tocolysis with nifedipine. Patient states that she has an appointment with her provider in the office in 2 days. She stated her desire to go home and she is aware that she can always come back if her situation changes. labor as well as preeclampsia precautions were discussed in detail. Patient was counseled about medication compliance, expected side effects. She was informed of the oligohydramnios on ultrasound today and that we will need to recheck the AVERY in 2 days. Strict movement precautions were reviewed. Patient will be discharged home for follow-up in the office on Thursday.
== END 2024-06-25 19:32 | disposition home or self-care (01) | DRG 566 ==
PROVIDERS: Admitting Provider Obstetrics & Gynecology; Visit Provider Obstetrics & Gynecology
DX: O99.353 Diseases of the nervous system complicating pregnancy, third trimester (principal); O60.03 Preterm labor without delivery, third trimester; G44.229 Chronic tension-type headache, not intractable; Z3A.34 34 weeks gestation of pregnancy; Z79.82 Long term (current) use of aspirin
CPT/HCPCS: 36415; 59025; 59899; 76805; 80053; 80307; 82570; 83615; 83735; 84156; 84550; 85025; 85384; 85610; 85730; 87081; J0131; J0702; J1200; J2765; J3105; J3475; J7120; A9270

== ENCOUNTER 2024-06-27 12:58 | Outpatient (AMB) | payer MEDICAID, SELFPAY ==
--- NOTE | 2024-06-27 13:36 | OBCLNT_ITS ---
Vital Signs 06/27/24 13:40 Weight 89.414 kg Weight Measurement Method Standing Scale BP 126/86 H Blood Pressure Source Automatic Cuff Blood Pressure Location Right Upper Arm Position Sitting Respiration 18 Pulse 80 Pulse Source Monitor Temp 97.1 F Temp Source Temporal Artery Scan Pulse Oximetry (%) 99 Oxygen Delivery Method Room Air Allergies/Home Meds Allergies & Medications Allergies No Known Allergies Allergy (Unknown, Verified 06/27/24 13:43) Medication Reconciliation aspirin 81 mg tablet,delayed release 81 mg PO QDAY 05/10/19 [History Confirmed 06/27/24] vit no.95-ferrous fumarate 28 mg-folic acid 800 mcg tablet () 1 tab PO QDAY #90 tabs 12/16/23 [Rx Confirmed 06/27/24] nitrofurantoin monohydrate/macrocrystals 100 mg capsule 100 mg PO Q12H UTI 06/01/24 [History Confirmed 06/27/24] hydrocodone 5 mg-acetaminophen 325 mg tablet 1 tab PO Q4HR PRN Headache (Migraine) 3 days #10 tabs 06/25/24 [Rx Confirmed 06/27/24] nifedipine 10 mg capsule 10 mg PO TID 5 days #15 caps 06/25/24 [Rx Confirmed 06/27/24] Intake Visit Data Collection New Patient or Established: Established Patient (seen at [facility] within 3 years) Reason for Visit:: OBC Seen by Clinical Staff ONLY (RN/MA): No Calciminer Required: No Do You Feel Safe at Home: Yes Authorities Contacted: N/A PCP or OBGYN visit in last 3 months: Yes Hx Now: Yes Are you currently on any form of Control: No Pain Present Currently: No Pain Scale Used: Colón-Graham/Numerical Pain scale:: 0 Smoking Status Smoking Status: Former smoker Questionnaires Covid-19 Vaccine Questionnaire Has patient been vacinated for Covid-19 Have you been vacinated for Covid-19: Yes PHQ-9 PHQ-2 Over the last 2 weeks, how often have you been bothered by any of the following problems? 1. Little interest or pleasure in doing things: not at all 2. Feeling down, depressed, or hopeless: not at all Total score: 0 PHQ-9 3. Trouble falling or staying asleep, or sleeping too much: Not at all 4. Feeling tired or having little energy: Not at all 5. Poor appetite or overeating: Not at all 6. Feeling bad about yourself - or that you are a failure or have let yourself or your family down: Not at all 7. Trouble concentrating on things, such as reading the newspaper or watching television: Not at all 8. Moving or speaking so slowly that other people could have noticed? - Or the opposite - being so fidgety or restless that you have been moving around a lot more than usual: not at all 9. Thoughts that you would be better off or of hurting yourself in some way: Not at all Total score: 0 If you checked off any problems, how difficult have these problems made it for you to do your work, take care of things at home, or get along with other people?: not difficult at all Source: Developed by Drs. Amilcar Chawla, Danielle Cagle, Bhargav Marlow and colleagues, with an educational marion from [employer]. Depression screen completed yes Social History Living Situation History Marital Status: Single Lives With: Family Housing: Mobile home Tobacco History Smoking Status: Former smoker Second Hand Smoke Exposure: No Alcohol History Alcohol Intake: Former Substance Use History Substance Use: THC Domestic Abuse History Do You Feel Safe at Home: Yes Past Medical History Past Medical History Have you ever been diagnosed with any of the following: Cardiology Problems Congestive Heart Failure: No Hypertension: Yes Respiratory Problems Chronic Obstructive Pulmonary Disease (COPD): No Asthma: No Bronchitis: No Stomache/Intestinal Problems Hepatitis: No Colorectal Cancer: No Genital/Urinary Problems Renal Disease: No Reproductive Problems Breast Cancer: No Musculoskeletal Problems Bone Cancer: No Endocrine Problems Diabetes Mellitus Type 1: No Diabetes Mellitus Type 2: No Blood Problems Anemia: Yes Other Problems Hospitalization: No Down Syndrome: No Developmental Delay: No Shingles: No Falls: No Blood Transfusions: Yes Blood Transfusion Reaction: No Anesthesia Reactions: No Organ Transplant: No Chemotherapy: No Radiation Therapy: No Hyperbaric Therapy: No MRSA: No VRSA: No Vancomycin-Resistant Enterococci: No Human Immunodeficiency Virus (HIV): No Chicken Pox: No Measles: No Mumps: No Rubella (Palestinian Measles): No Pertussis: No Clostridium Difficile: No Cancer: No Cervical Cancer: No Lung Cancer: No Ovarian Cancer: No Visit OB Visit Log OB Flowsheet Initial Weight: Not Recorded Date -?-?-?-?-?-?-?-?-?-?-?-?- EGA Weight Edema CTX Effacement BP Fundal ht Pres Dilation Effacement Station Visit Note Alb Glu FHR Mov 06/20/24 -?-?-?-?-?-?-?-?-?-?-?-?- 34w 2d 64.467 kg absent absent 121/80 121/80 34 cephalic 34-y ear-old 7 para 5 OB transfer from [facility] without records. History of gestational hypertension this . Patient's been compliant with low-dose baby aspirin her blood pressure today 120/81. Patient was seen in the ER for headache and blurred vision on June 10. Treated with IV hydration and NST and sent home. Patient has a follow-up MFM appointment July 03. I will call for her previous MFM up consults. Discussed labor and kick count twice daily. Discussed danger signs and symptoms of worsening PIH symptoms. ER precautions given continue low-dose baby aspirin to 36 weeks. GBS next visit. Urine dips for urine at all visits. Return in a week for follow-up. Urine protien was negative, wbc/nitrite- 156 acti ve 06/27/24 -?-?-?-?-?-?-?-?-?-?-?-?- 35w 2d 89.414 kg absent absent 126/86 34 cephalic denies UC/cramps/leaking today. denies headache. vision is clear. compliant with Nifedipine. fetus active, c/o SOB, lungs clear to auscultation,no wheezes, unlabored, color pink. patient to L&D forf/u AVERY. previous AVERY was 4.2. fkc BID, discuss ptl precaution, schedule with OB for f/u care 156 active KIMBERLY Calculator Estimated Delivery Date Method Current WG Current Estimate 07/30/24 LMP (Certain) 35w 2d Assessment & Plan Diagnosis / Problem List (1) Encounter for supervision of normal in multigravida in third trimester: Status: Acute Plan continue Nifedipine as directed, fkc bid, discuss PTL precaution. increase fluids and rest. Patient to Labor and Delivery for NST/BPP and evaluation. f/u with OB for care Additional Plan Follow Up: 1 Week (OBC) Office Procedures OB Clinic LOC & Office Proc's Nursing/Assessment Patient Status: Established Patient OB Clinic Nursing Assessment: BP Monitoring, Medication Reconciliation, Update PMH in EMR and Vital Signs OB Clinic Coordination of Care: Consent,records obtained, informed consent, Education Simp Pt/Fam, Results/Orders obtained and Staff clarify orders Special Needs: Heart tones Established Patient Charge Established Patient Point Assignment: 110 Established Patient Point Charge: EP Level 3 (80-115)
[2024-06-27 13:40] VITALS: BP 126/86; PULSE 80; RESP 18; TEMP 36.2; O2SAT 99
== END 2024-06-27 14:06 | disposition home or self-care (01) ==
LOC: HODSOBC 12:58
PROVIDERS: Supervising Provider Advanced Practice Midwife; Visit Provider Advanced Practice Midwife
DX: O09.893 Supervision of other high risk pregnancies, third trimester (principal); O13.3 Gestational [pregnancy-induced] hypertension without significant proteinuria, third trimester; Z3A.35 35 weeks gestation of pregnancy
CPT/HCPCS: 99213; G0463

== ENCOUNTER 2024-06-27 14:05 | Outpatient (CLI) | payer MEDICAID, SELFPAY ==
[2024-06-27] VITALS (14 sets, daily range): BP systolic 108–151; BP diastolic 70–100; PULSE 68–79; RESP 18–99; TEMP 36.7; BMI 25.4
--- NOTE | 2024-06-27 14:15 | XR_ITS ---
Examination: Biophysical profile, ultrasound Date and time of exam: June 27, 2024 1434 hours INDICATIONS: Diagnosis -induced hypertension Technique: Multiple transabdominal sonographic images of the pelvis abdomen obtained. Attention is directed to the breathing movement, gross body movement, amniotic fluid volume and tone. Findings: Amniotic fluid index 6.2 cm Total biophysical profile is 8 of 8. breathing movement is 2. Gross body movement is 2. tone is 2. Qualitative amniotic fluid volume is 2 Impression: Biophysical profile is 8 of 8.
[2024-06-27] MEDS: LABETALOL 100 MG TABLET 200 MG PO (14:43)
[2024-06-27 15:31] LABS: Basophils % (Auto) 0 % (0-2.5); Eosinophils % (Auto) 0 % (0-10); Hematocrit 32.5 % (36.0-46.0); Hemoglobin 11.2 g/dL (12.0-16.0); Immature Granulocytes % (Auto) 2 % (0-0); Immature Granulocytes Auto 0.21 Thou/mm3 (0.00-0.00); Lymphocytes # (Auto) 2.8 Thou/mm3 (1.0-4.8); Lymphocytes % (Auto) 21 % (10-50); Mean Corpuscular HGB Conc 34.5 g/dl (31.0-37.0); Mean Corpuscular Hemoglobin 31.9 pg (25.0-35.0); Mean Corpuscular Volume 93 fL (80-100); Monocytes # (Auto) 1.8 Thou/mm3 (0.0-0.8); Monocytes % (Auto) 14 % (0-12); Neutrophils # (Auto) 8.2 Thou/mm3 (1.8-7.7); Neutrophils % (Auto) 63 % (37-80); Nucleated Red Blood Cell # 0.14 Thou/mm3 (0.00-0.00); Nucleated Red Blood Cell % 1 /100 WBC (0); Platelet Count 219 Thou/mm3 (140-440); RDW Standard Deviation 40.6 fL (36.4-46.3); Red Blood Count 3.51 Miln/mm3 (4.00-5.20)
[2024-06-27 15:57] LABS: Fibrinogen 406 mg/dL (175-375); Partial Thromboplastin Time 23.1 Seconds (22.0-36.0); Prothrombin Time 10.5 Seconds (9.0-12.2)
[2024-06-27 16:10] LABS: Alanine Aminotransferase 9 U/L (10-49); Albumin, Serum 4.1 gm/dL (3.5-5.0); Albumin/Globulin Ratio 1.5 (1.2-2.2); Alkaline Phosphatase 120 U/L (46-116); Anion Gap 8 (7-16); Aspartate Amino Transferase 25 U/L (0-34); BUN/Creatinine Ratio 10 Ratio (12-20); Bilirubin,Total 0.7 mg/dL (0.3-1.2); Blood Urea Nitrogen 6 mg/dL (9-23); Calcium 8.9 mg/dL (8.3-10.6); Calcium (Corrected) 8.9 mg/dL (8.5-10.1); Carbon Dioxide 22.6 mMol/L (20.0-31.0); Chloride 105 mMol/L (98-107); Creatinine (Component) 0.6 mg/dL (0.6-1.3); Estimated Creatinine Clearance 122.3 mL/min (>60); Globulin 2.8 gm/dL (2.3-3.5); Glucose 85 mg/dL (74-106); LDH (Lactate Dehydrogenase) 198 U/L (120-246); Osmolality,Calculated 268 (275-295); Potassium 3.3 mMol/L (3.4-5.1); Sodium 136 mMol/L (136-145); Total Protein 6.9 gm/dL (5.7-8.2); Uric Acid 5.8 mg/dL (3.1-7.8); eGFR > 60 See Note
[2024-06-27 16:27] LABS: Collection Type, Urine Clean Catch
[2024-06-27 17:11] LABS: Bacteria,Urine 3+; Bilirubin,Urine Negative (Negative); Blood,Urine Negative (Negative); Color,Urine Colorless (Lt Yel-Yel); Glucose, Urine Negative (Negative); Ketones,Urine Negative (Negative); Leukocyte Esterase,Urine Positive (Negative); Nitrite,Urine Negative (Negative); Protein,Urine Negative (Neg - Trace); RBC,Urine 2 /hpf (0-3); Specific Gravity,Urine 1.004 (1.001-1.035); Squamous Epithelial Cell,Urine 12 /hpf (0-5); Urobilinogen,Urine Negative mg/dL (0.0-1.0); WBC,Urine 5 /hpf (0-5)
[2024-06-27 17:16] LABS: Creatinine,Random Urine 25 mg/dL (30-125); Protein Total, Random Urine 11 mg/dL (1-14)
[2024-06-27 17:20] LABS: Clarity,Urine Cloudy (Clear/Hazy)
== END 2024-06-27 18:00 | disposition home or self-care (01) ==
LOC: S4S1 14:06 → S4SX 14:07
PROVIDERS: Referring Provider Specialist; Visit Provider Specialist
DX: O10.913 Unspecified pre-existing hypertension complicating pregnancy, third trimester (principal); Z3A.34 34 weeks gestation of pregnancy
CPT/HCPCS: 36415; 59025; 76819; 80053; 81001; 82570; 82575; 83615; 84156; 84550; 85025; 85384; 85610; 85730; A9270

== ENCOUNTER 2024-06-30 09:14 | Outpatient (CLI) | payer MEDICAID, SELFPAY ==
[2024-06-30] VITALS (16 sets, daily range): BP systolic 103–116; BP diastolic 59–71; PULSE 83–100; RESP 18–100; TEMP 36.4; O2SAT 97–100; BMI 25.7
[2024-06-30] MEDS: ACETAMINOPHEN 325 MG TABLET 650 MG PO (10:08)
--- NOTE | 2024-06-30 11:41 | PC.NURSE ---
Patient discharged home with self. vitals wnl, nst reactive. Patient given discharge instructions and education including reasons to return and preeclampsia symptoms. Patient insturcted to follow up with OB at next scheudled appt. Patient verbalzies understanding, all questions answered and encouraged.
== END 2024-06-30 10:38 | disposition home or self-care (01) ==
LOC: S4S1 09:15 → S4SX 09:16
PROVIDERS: Referring Provider Obstetrics & Gynecology; Visit Provider Obstetrics & Gynecology
DX: Z34.83 Encounter for supervision of other normal pregnancy, third trimester (principal); Z36.9 Encounter for antenatal screening, unspecified; Z3A.35 35 weeks gestation of pregnancy
CPT/HCPCS: 59025; A9270

== ENCOUNTER 2024-07-04 10:30 | Outpatient (AMB) | payer MEDICAID, SELFPAY ==
[2024-07-04 10:48] VITALS: BP 122/71; PULSE 86; RESP 16; TEMP 36.3; O2SAT 97; BMI 25.5
--- NOTE | 2024-07-04 10:48 | OBCLNT_ITS ---
Vital Signs 07/04/24 10:48 Height 1.6 m Height Method Stated Weight 65.431 kg Weight Measurement Method Standing Scale BMI 25.5 BP 122/71 Blood Pressure Source Automatic Cuff Blood Pressure Location Left Upper Arm Position Sitting Respiration 16 Pulse 86 Pulse Source Monitor Temp 97.4 F Temp Source Oral Pulse Oximetry (%) 97 Oxygen Delivery Method Room Air Allergies/Home Meds Allergies & Medications Allergies No Known Allergies Allergy (Unknown, Verified 07/04/24 10:49) Medication Reconciliation aspirin 81 mg tablet,delayed release 81 mg PO QDAY 05/10/19 [History Confirmed 07/04/24] vit no.95-ferrous fumarate 28 mg-folic acid 800 mcg tablet () 1 tab PO QDAY #90 tabs 12/16/23 [Rx Confirmed 07/04/24] labetalol 200 mg tablet 200 mg PO BID #60 tabs 06/27/24 [Rx Confirmed 07/04/24] Intake Visit Data Collection New Patient or Established: Established Patient (seen at [facility] within 3 years) Reason for Visit:: - Persistent headache unresolved with medications - Shortness of breath for 1 week - Feeling of tightness in chest Seen by Clinical Staff ONLY (RN/MA): No Snack Bar Cook Required: No Do You Feel Safe at Home: Yes Authorities Contacted: N/A PCP or OBGYN visit in last 3 months: Yes Hx Now: Yes Are you currently on any form of Control: No Pain Present Currently: No Pain Scale Used: Colón-Graham/Numerical Pain scale:: 0 Smoking Status Smoking Status: Former smoker Questionnaires Covid-19 Vaccine Questionnaire Has patient been vacinated for Covid-19 Have you been vacinated for Covid-19: No PHQ-9 PHQ-2 Over the last 2 weeks, how often have you been bothered by any of the following problems? 1. Little interest or pleasure in doing things: not at all 2. Feeling down, depressed, or hopeless: not at all Total score: 0 PHQ-9 3. Trouble falling or staying asleep, or sleeping too much: Not at all 4. Feeling tired or having little energy: Not at all 5. Poor appetite or overeating: Not at all 6. Feeling bad about yourself - or that you are a failure or have let yourself or your family down: Not at all 7. Trouble concentrating on things, such as reading the newspaper or watching television: Not at all 8. Moving or speaking so slowly that other people could have noticed? - Or the opposite - being so fidgety or restless that you have been moving around a lot more than usual: not at all 9. Thoughts that you would be better off or of hurting yourself in some way: Not at all Total score: 0 Source: Developed by Drs. Amilcar Chawla, Danielle Cagle, Bhargav Marlow and colleagues, with an educational marion from [employer]. Depression screen completed yes Social History Living Situation History Lives With: Family Housing: Mobile home Tobacco History Smoking Status: Former smoker Second Hand Smoke Exposure: No Alcohol History Alcohol Intake: Former Substance Use History Substance Use: THC Domestic Abuse History Do You Feel Safe at Home: Yes Past Medical History Past Medical History Have you ever been diagnosed with any of the following: Cardiology Problems Congestive Heart Failure: No Hypertension: Yes Respiratory Problems Chronic Obstructive Pulmonary Disease (COPD): No Asthma: No Bronchitis: No Stomache/Intestinal Problems Hepatitis: No Colorectal Cancer: No Genital/Urinary Problems Renal Disease: No Reproductive Problems Breast Cancer: No Musculoskeletal Problems Bone Cancer: No Endocrine Problems Diabetes Mellitus Type 1: No Diabetes Mellitus Type 2: No Blood Problems Anemia: Yes Other Problems Hospitalization: No Down Syndrome: No Developmental Delay: No Shingles: No Falls: No Blood Transfusions: Yes Blood Transfusion Reaction: No Anesthesia Reactions: No Organ Transplant: No Chemotherapy: No Radiation Therapy: No Hyperbaric Therapy: No MRSA: No VRSA: No Vancomycin-Resistant Enterococci: No Human Immunodeficiency Virus (HIV): No Chicken Pox: No Measles: No Mumps: No Rubella (Malay Measles): No Pertussis: No Clostridium Difficile: No Cancer: No Cervical Cancer: No Lung Cancer: No Ovarian Cancer: No History of Present Illness HPI Narrative - Hannah Best is a 34-year-old at 36 weeks and 2 days gestation, presenting for a visit with a history of persistent headache and gestational hypertension. - Chief complaint: Persistent headache - Duration: Ongoing, mentioned in previous triage visits - Treatment: Previously treated with hydrocodone in triage - Current management: Tylenol, which is helping a little bit - Gestational hypertension - Current treatment: Labetalol 200 mg BID - Patient reports adherence to medication regimen - New symptom: Shortness of breath - Onset: About a week ago - Character: Feels tight - No associated lightheadedness reported - movement: Patient reports the baby is moving a lot - Recent healthcare interactions: - Admitted to labor and delivery on June 24, 2024 - Office visit on June 27, 2024, with continued headache complaint - Multiple triage visits for persistent headache (timing not specified) - Planned interventions: - Scheduled for induction of labor on July 13, 2024, at 37 weeks and 4 days gestation - Instructed to return to the hospital on of the current week for anesthetic evaluation No contractions/ LOF/VB, reports good FM No TYLER/VC/RUQ/Epig pain Care OB Visit Log OB Flowsheet Initial Weight: Not Recorded Date -?-?-?-?-?-?-?-?-?-?-?-?- EGA Weight Edema CTX Effacement BP Fundal ht Pres Dilation Effacement Station Visit Note Alb Glu FHR Mov 06/20/24 -?-?-?-?-?-?-?-?-?-?-?-?- 34w 2d 64.467 kg absent absent 121/80 121/80 34 cephalic 34-y ear-old 7 para 5 OB transfer from [facility] without records. History of gestational hypertension this . Patient's been compliant with low-dose baby aspirin her blood pressure today 120/81. Patient was seen in the ER for headache and blurred vision on June 10. Treated with IV hydration and NST and sent home. Patient has a follow-up MFM appointment July 03. I will call for her previous MFM up consults. Discussed labor and kick count twice daily. Discussed danger signs and symptoms of worsening PIH symptoms. ER precautions given continue low-dose baby aspirin to 36 weeks. GBS next visit. Urine dips for urine at all visits. Return in a week for follow-up. Urine protien was negative, wbc/nitrite- 156 acti ve 06/27/24 -?-?-?-?-?-?-?-?-?-?-?-?- 35w 2d 89.414 kg absent absent 126/86 34 cephalic denies UC/cramps/leaking today. denies headache. vision is clear. compliant with Nifedipine. fetus active, c/o SOB, lungs clear to auscultation,no wheezes, unlabored, color pink. patient to L&D forf/u AVERY. previous AVERY was 4.2. fkc BID, discuss ptl precaution, schedule with OB for f/u care 156 active 07/04/24 -?-?-?-?-?-?-?-?-?-?-?-?- 36w 2d 65.431 kg 122/71 Myriam leonie Best, 34 y/o at 36w2d (KIMBERLY 07/22/2024), presents for follow-up of gestational hypertension and persistent headache. Reports ongoing headache partially relieved by Tylenol, previously treated with hydrocodone in triage. Also reports 1 week of SOB described as chest tightness without lightheadedness. Denies contractions, LOF, or VB. Good movement. On labetalol 200 mg BID with compliance. Admitted 06/24, seen 06/27, multiple triage visits. Induction scheduled for 07/13 at 37w4d. Will return 07/07 for anesthetic evaluation. FHR visible, reassuring. Plan: Continue labetalol 200 mg BID. Pro ceed with induction on 07/13. No further routine visits scheduled. Return 07/07 for anesthesia eval. Education provided on labor precautions, diet, hydration, and warning signs. 152 active KIMBERLY Calculator Estimated Delivery Date Method Current WG Current Estimate 07/30/24 LMP (Certain) 36w 3d Exam General Limitations: no limitations General Appearance: alert, in no apparent distress and comfortable Head Head exam: atraumatic and normocephalic Eye Eye exam: Present normal appearance, PERRL and EOMI Neck Neck exam: Present normal inspection and full ROM Chest Chest inspection: Present normal inspection and symmetric chest wall rise; Absent tenderness Resp Respiratory exam: Present normal lung sounds bilaterally; Absent respiratory distress Card Cardiovascular exam: Present regular rate and normal rhythm Abdominal Abdominal exam: Present soft and normal bowel sounds; Absent tenderness, guarding, rebound or rigidity Neuro Neurological exam: Present alert and oriented X3 Psych Psychiatric exam: Present normal affect Assessment & Plan Diagnosis / Problem List (1) contractions: Status: Acute (2) 34 weeks gestation of : Status: Acute (3) Gestational hypertension: Status: Acute Plan Problem List - - Grand multiparity - Gestational hypertension - Persistent headache - Shortness of breath Assessment - at 36 weeks and 2 days gestation - Persistent headache, partially responsive to hydrocodone and Tylenol - Gestational hypertension, currently on labetalol 200 mg BID - Shortness of breath for one week, possibly related to labetalol - Grand multiparity - movement reported as normal Plan - Induction of labor scheduled for July 13, 2024 at 37 weeks and 4 days - Patient to call provided phone number on the morning of July 13 for induction instructions - Continue labetalol 200 mg BID for gestational hypertension - Return to hospital on (July 07, 2024) for anesthetic evaluation - No further appointments at current office Educated the patient on labor signs, including regular contractions, lower back pain, and changes in vaginal discharge. Advised avoiding heavy lifting and getting adequate rest. Instructed to contact the office immediately if any signs occur. Discussed the importance of a balanced diet rich in folic acid, iron, and calcium, and provided a list of recommended and to-avoid foods. Emphasized avoiding high-sugar foods to reduce gestational diabetes risk. Encouraged hydration and frequent, small meals for energy.. Office Procedures OB Clinic LOC & Office Proc's Nursing/Assessment Patient Status: Established Patient OB Clinic Nursing Assessment: Medication Reconciliation, Update PMH in EMR and Vital Signs OB Clinic Coordination of Care: Complex Care and Chronic Disease 1-5, Consent,records obtained, informed consent, Education Simp Pt/Fam, Results/Orders obtained and Staff clarify orders Special Needs: Heart tones Miscellaneous Interventions: Blood/Urine Collection Established Patient Charge Established Patient Point Assignment: 150 Established Patient Point Charge: EP Level 4 (120-155)
== END 2024-07-04 11:21 | disposition home or self-care (01) ==
LOC: HODSOBC 10:30
PROVIDERS: Supervising Provider Obstetrics & Gynecology; Visit Provider Obstetrics & Gynecology
DX: O09.893 Supervision of other high risk pregnancies, third trimester (principal); O09.43 Supervision of pregnancy with grand multiparity, third trimester; O13.3 Gestational [pregnancy-induced] hypertension without significant proteinuria, third trimester; O99.891 Other specified diseases and conditions complicating pregnancy; R06.02 Shortness of breath; Z3A.36 36 weeks gestation of pregnancy; Z87.891 Personal history of nicotine dependence
CPT/HCPCS: 99214; G0463

== ENCOUNTER 2024-07-06 14:19 | Observation (INO) | payer MEDICAID, SELFPAY ==
[2024-07-06] VITALS (35 sets, daily range): BP systolic 116–141; BP diastolic 73–90; PULSE 71–96; RESP 16–99; TEMP 36.1; O2SAT 98–100
[2024-07-06 15:38] LABS: Collection Type, Urine Clean Catch; RBC,Urine 0 /hpf (0-3)
[2024-07-06 15:40] LABS: Basophils % (Auto) 0 % (0-2.5); Eosinophils % (Auto) 1 % (0-10); Hematocrit 30.7 % (36.0-46.0); Hemoglobin 10.4 g/dL (12.0-16.0); Immature Granulocytes % (Auto) 1 % (0-0); Immature Granulocytes Auto 0.04 Thou/mm3 (0.00-0.00); Lymphocytes # (Auto) 2.5 Thou/mm3 (1.0-4.8); Lymphocytes % (Auto) 29 % (10-50); Mean Corpuscular HGB Conc 33.9 g/dl (31.0-37.0); Mean Corpuscular Hemoglobin 31.1 pg (25.0-35.0); Mean Corpuscular Volume 92 fL (80-100); Monocytes # (Auto) 0.9 Thou/mm3 (0.0-0.8); Monocytes % (Auto) 11 % (0-12); Neutrophils # (Auto) 5.1 Thou/mm3 (1.8-7.7); Neutrophils % (Auto) 59 % (37-80); Nucleated Red Blood Cell # 0.02 Thou/mm3 (0.00-0.00); Nucleated Red Blood Cell % 0 /100 WBC (0); Platelet Count 193 Thou/mm3 (140-440); RDW Standard Deviation 40.8 fL (36.4-46.3); Red Blood Count 3.34 Miln/mm3 (4.00-5.20); White Blood Count 8.6 Thou/mm3 (3.6-11.0)
[2024-07-06 16:00] LABS: Creatinine,Random Urine 30 mg/dL (30-125); Protein Total, Random Urine 6 mg/dL (1-14)
[2024-07-06 16:01] LABS: Fibrinogen 448 mg/dL (175-375); INR 0.9 (0.9-1.3); Partial Thromboplastin Time 23.5 Seconds (22.0-36.0); Prothrombin Time 10.4 Seconds (9.0-12.2)
[2024-07-06 16:09] LABS: Alanine Aminotransferase < 7 U/L (10-49); Albumin, Serum 3.9 gm/dL (3.5-5.0); Albumin/Globulin Ratio 1.4 (1.2-2.2); Alkaline Phosphatase 135 U/L (46-116); Anion Gap 10 (7-16); Aspartate Amino Transferase 14 U/L (0-34); BUN/Creatinine Ratio 11 Ratio (12-20); Bilirubin,Total 0.8 mg/dL (0.3-1.2); Blood Urea Nitrogen 8 mg/dL (9-23); Calcium 8.7 mg/dL (8.3-10.6); Calcium (Corrected) 8.8 mg/dL (8.5-10.1); Carbon Dioxide 21.3 mMol/L (20.0-31.0); Chloride 106 mMol/L (98-107); Creatinine (Component) 0.7 mg/dL (0.6-1.3); Globulin 2.7 gm/dL (2.3-3.5); Glucose 118 mg/dL (74-106); LDH (Lactate Dehydrogenase) 157 U/L (120-246); Osmolality,Calculated 273 (275-295); Potassium 3.5 mMol/L (3.4-5.1); Sodium 137 mMol/L (136-145); Total Protein 6.6 gm/dL (5.7-8.2); Uric Acid 5.6 mg/dL (3.1-7.8); eGFR > 60 See Note
[2024-07-06 16:42] LABS: Bacteria,Urine Rare; Bilirubin,Urine Negative (Negative); Blood,Urine Negative (Negative); Clarity,Urine Clear (Clear/Hazy); Color,Urine Lt-Yellow (Lt Yel-Yel); Glucose, Urine Negative (Negative); Ketones,Urine Negative (Negative); Leukocyte Esterase,Urine Negative (Negative); Nitrite,Urine Negative (Negative); PH,Urine 5.5 (5.0-7.0); Protein,Urine Negative (Neg - Trace); Specific Gravity,Urine 1.007 (1.001-1.035); Squamous Epithelial Cell,Urine 5 /hpf (0-5); Urobilinogen,Urine Negative mg/dL (0.0-1.0); WBC,Urine 1 /hpf (0-5)
== END 2024-07-06 17:08 | disposition home or self-care (01) ==
PROVIDERS: Admitting Provider Obstetrics & Gynecology; Visit Provider Obstetrics & Gynecology
DX: O26.893 Other specified pregnancy related conditions, third trimester (principal); Z3A.36 36 weeks gestation of pregnancy; R42 Dizziness and giddiness; R06.02 Shortness of breath; R51.9 Headache, unspecified
CPT/HCPCS: 36415; 59025; 59899; 80053; 81001; 82570; 83615; 84156; 84550; 85025; 85384; 85610; 85730

== ENCOUNTER 2024-07-13 05:39 | Inpatient (IN) | payer MEDICAID, SELFPAY ==
[2024-07-13] VITALS (162 sets, daily range): BP systolic 113–178; BP diastolic 73–110; PULSE 57–100; RESP 16–19; TEMP 36.7–37.3; O2SAT 89–100; BMI 24.9; BMI 26.5
--- NOTE | 2024-07-13 06:29 | XR_ITS ---
Examination: age limited TECHNIQUE: Limited transabdominal sonographic images pelvis Date and time: July 13, 2024 0720 hours INDICATIONS: Preop labor induction today, unknown presentation. FINDINGS: Viable intrauterine gestation cephalic presentation spine anterior Cardiac motion 124 bpm Impression: Viable intrauterine gestation cephalic presentation
[2024-07-13] MEDS: ACETAMINOPHEN 325 MG TABLET 650 MG PO (07:41)
--- NOTE | 2024-07-13 07:59 | PD.LDPN ---
Documentation for date of: 07/13/24 OB Labor Progress Note Pain Control Pain control: tolerating well Comments: Not in labor Pelvic Exam Dilation (cm): 1-2 Effacement (%): 70 station: -2 Amniotic membrane status: Intact Contractions Monitor mode: External Contraction frequency: 1-5 Contraction intensity: Mild Status status: Category l Assessment and Plan Assessment: induction ongoing Comments: P.o. Cytotec x 3 total doses ordered. First one now. Okay to ambulate. Positive group B strep. Will start ampicillin once patient is in active labor.
[2024-07-13 08:13] LABS: Collection Type, Urine Clean Catch
[2024-07-13] MEDS: MISOPROSTOL 50 mCg TABLET PO ×2 (08:21→14:47)
[2024-07-13 08:27] LABS: Basophils % (Auto) 0 % (0-2.5); Eosinophils % (Auto) 0 % (0-10); Hematocrit 32.9 % (36.0-46.0); Hemoglobin 11.1 g/dL (12.0-16.0); Immature Granulocytes % (Auto) 1 % (0-0); Immature Granulocytes Auto 0.05 Thou/mm3 (0.00-0.00); Lymphocytes % (Auto) 26 % (10-50); Mean Corpuscular HGB Conc 33.7 g/dl (31.0-37.0); Mean Corpuscular Hemoglobin 30.7 pg (25.0-35.0); Mean Corpuscular Volume 91 fL (80-100); Monocytes # (Auto) 0.7 Thou/mm3 (0.0-0.8); Monocytes % (Auto) 9 % (0-12); Neutrophils # (Auto) 4.9 Thou/mm3 (1.8-7.7); Neutrophils % (Auto) 63 % (37-80); Nucleated Red Blood Cell % 0 /100 WBC (0); Platelet Count 185 Thou/mm3 (140-440); RDW Standard Deviation 41.1 fL (36.4-46.3); Red Blood Count 3.61 Miln/mm3 (4.00-5.20); White Blood Count 7.7 Thou/mm3 (3.6-11.0)
[2024-07-13 08:28] LABS: Bilirubin,Urine Negative (Negative); Blood,Urine Negative (Negative); Clarity,Urine Clear (Clear/Hazy); Color,Urine Lt-Yellow (Lt Yel-Yel); Glucose, Urine Negative (Negative); Ketones,Urine Negative (Negative); Leukocyte Esterase,Urine Negative (Negative); Nitrite,Urine Negative (Negative); Protein,Urine Negative (Neg - Trace); RBC,Urine 1 /hpf (0-3); Squamous Epithelial Cell,Urine 1 /hpf (0-5); Urobilinogen,Urine Negative mg/dL (0.0-1.0); WBC,Urine < 1 /hpf (0-5)
[2024-07-13 08:31] LABS: Creatinine,Random Urine 56 mg/dL (30-125); Protein Total, Random Urine 21 mg/dL (1-14)
[2024-07-13 08:38] LABS: Fibrinogen 470 mg/dL (175-375); INR 0.9 (0.9-1.3); Partial Thromboplastin Time 24.2 Seconds (22.0-36.0); Prothrombin Time 10.3 Seconds (9.0-12.2)
[2024-07-13 08:50] LABS: Alanine Aminotransferase < 7 U/L (10-49); Albumin, Serum 3.9 gm/dL (3.5-5.0); Albumin/Globulin Ratio 1.5 (1.2-2.2); Alkaline Phosphatase 160 U/L (46-116); Anion Gap 12 (7-16); Aspartate Amino Transferase 15 U/L (0-34); BUN/Creatinine Ratio 8 Ratio (12-20); Bilirubin,Total 0.7 mg/dL (0.3-1.2); Blood Urea Nitrogen 5 mg/dL (9-23); Calcium 8.1 mg/dL (8.3-10.6); Calcium (Corrected) 8.2 mg/dL (8.5-10.1); Carbon Dioxide 19.8 mMol/L (20.0-31.0); Chloride 109 mMol/L (98-107); Creatinine (Component) 0.6 mg/dL (0.6-1.3); Estimated Creatinine Clearance 124.5 mL/min (>60); Globulin 2.6 gm/dL (2.3-3.5); Glucose 74 mg/dL (74-106); Osmolality,Calculated 277 (275-295); Potassium 3.7 mMol/L (3.4-5.1); Sodium 141 mMol/L (136-145); Total Protein 6.5 gm/dL (5.7-8.2); Uric Acid 5.7 mg/dL (3.1-7.8); eGFR > 60 See Note
[2024-07-13 08:55] LABS: Syphilis Nonreactive (Nonreactive)
[2024-07-13] MEDS: RINGERS LACTATED 1000 ML 1,000 ML 100 ML IV ×2 (14:16→23:14)
--- NOTE | 2024-07-13 16:55 | PC.NURSE ---
07/13/2024 1655: MD Almeida called and notified of pts. bp 151/98. Pt. took her labetalol 200po BID at home at 0500 before coming into the hospital for induction; its been 12 hr at 1700. Received orders from MD munson to give scheduled PO labetalol now.
[2024-07-13] MEDS: LABETALOL 100 MG TABLET 200 MG PO (16:59)
--- NOTE | 2024-07-13 17:35 | PD.LDPN ---
Documentation for date of: 07/13/24 OB Labor Progress Note Pain Control Pain control: tolerating well Pelvic Exam Dilation (cm): 3 Effacement (%): 60 station: -2 Amniotic membrane status: Intact Contractions Monitor mode: External Contraction frequency: 2-4 Contraction intensity: Mild Status status: Category l Assessment and Plan Assessment: induction ongoing Comments: Status post Cytotec 50 mcg x 2. Plan Cytotec again in 1 hour. Okay for epidural. Once she has epidural I will AROM patient and place internals.
[2024-07-13] MEDS: LABETALOL INJ 5 MG/ML VIAL 20 ML 20 MG IVP ×2 (17:41→18:13)
[2024-07-13] MEDS: Ampicillin Inj 2,000 MG in SODIUM CHLORIDE 0.9% (POP) 100 ML 200 MG IV (17:42)
--- NOTE | 2024-07-13 19:04 | ESHP_ITS ---
Documentation for date of: 07/13/24 OB Labor/Induct. HPI History of Present Illness Chief complaint: Induction of labor at 37 weeks and 4 days gestation : 7 Para: 5 Term pregnancies: 5 pregnancies: 0 Living children: 5 History of Abortions: Spontaneous and Elective: 1 History of sections: No History of : No KIMBERLY: 07/30/24 History of present illness: Hannah Best is a 34-year-old patient presenting for induction of labor at 37 weeks and 4 days gestation. She has a history of chronic hypertension with repeated hospital admissions for intractable headache in her third trimester. The patient has been co-managed between the current obstetrics team and the maternal- medicine office at [facility] in [facility]. She has been taking labetalol 200 mg BID for hypertension management. Occasionally, she has complained of shortness of breath, which has been attributed to the beta-susanne medication. Despite this, the patient consistently reports that the baby has been very active. Ms. Best's last admission to labor and delivery was on June 24, and she has had multiple triage visits for the same reason since then. She initiated her care at [facility]. The patient's most recent hospital admission for intractable headache occurred on June 24, with multiple subsequent triage visits for the same complaint. Medications and Supplements - Labetalol 200 mg by mouth twice daily - For hypertension - Occasionally causes shortness of breath Review of Systems General: Negative for fever, chills, fatigue. Cardiovascular: Negative for chest pain. Respiratory: Positive for occasional shortness of breath. Neurological: Positive for intractable headache in 3rd trimester. History of Present Adequate Care: Yes Past Medical History Surgical History SURGICAL: Negative Section Meds Home Medications and Allergies Home Medications ?Medication ?Instructions ?Recorded ?Confirmed ?Type aspirin 81 mg tablet,delayed 81 mg PO QDAY 05/10/19 History release Allergies Allergy/AdvReac Type Severity Reaction Status Date / Time No Known Allergies Allergy Unknown Verified 07/13/24 18:38 OB Exam Physical Exam Vital signs: Temp Pulse Resp BP Pulse Ox O2 Del Method 98.8 F 69 18 161/97 H 98 Room Air 07/13/24 16:48 07/13/24 19:02 07/13/24 16:48 07/13/24 19:02 07/13/24 19:04 07/13/24 16:48 Constitutional Constitutional: no acute distress Routine HEENT Exam Head: Present normocephalic and atraumatic Eye: Present EOMI and PERRL ENT: Present mucous membranes moist Routine Neck Exam Neck: Present supple and trachea midline Routine Cardiovascular Exam Cardiovascular: Present RRR Routine Abdominal Exam Abdominal: Present soft and normoactive bowel sounds Detailed Labor and Delivery Exam Dilation (cm): 1 Effacement (%): 50 Cervix position: mid station: -4 Consistency: firm Presentation: Vertex Membranes: intact Baseline heart rate: 145 monitor accelerations: 15x15 monitor decelerations: None Routine Extremities Exam Extremities: Present full ROM Routine Skin Exam Skin: Present intact, dry and warm Routine Neurological Exam Neurological: Present alert, oriented X3 and CN II-XII intact Routine Psychiatric Exam Psychiatric: Present normal affect and normal thought process OB Results Labs 07/13/24 06:08 07/13/24 06:37 Labs: Short CBC 07/13/24 07/13/24 Range/Units 06:08 06:37 WBC 7.7 Cancelled (3.6-11.0) Thou/mm3 Hgb 11.1 L Cancelled (12.0-16.0) g/dL Hct 32.9 L Cancelled (36.0-46.0) % Plt Count 185 Cancelled (140-440) Thou/mm3 BMP 07/13/24 06:37 Sodium 141 Potassium 3.7 Chloride 109 H Carbon Dioxide 19.8 L BUN 5 L Creatinine 0.6 Glucose 74 Calcium 8.1 L Liver Function 07/13/24 Range/Units 06:37 Total Bilirubin 0.7 (0.3-1.2) mg/dL AST 15 (0-34) U/L ALT < 7 L (10-49) U/L Alkaline Phosphatase 160 H (46-116) U/L Albumin 3.9 (3.5-5.0) gm/dL Urine 07/13/24 Range/Units 06:37 Urine Color Lt-Yellow (Lt Yel-Yel) Urine Clarity Clear (Clear/Hazy) Urine pH 6.0 (5.0-7.0) Ur Specific [place] 1.010 (1.001-1.035) Urine Protein Negative (Neg - Trace) Urine Glucose (UA) Negative (Negative) OB Assessment & Plan Assessment and Plan (1) Gestational hypertension: Status: Acute Assessment and plan: Hannah Best, 34-year-old , presents for induction of labor at 37 weeks and 4 days with a history of chronic hypertension and recurrent intractable headaches in the third trimester. at 37 weeks and 4 days gestation with chronic hypertension Assessment: Patient is a 34-year-old at 37 weeks and 4 days gestation presenting for induction of labor. She has a history of chronic hypertension managed with labetalol 200 mg BID. Multiple hospital admissions for intractable headache in the third trimester have occurred, with the last admission on June 24. Co-managed with maternal- medicine at [facility] in [facility]. Cervical exam reveals 1 cm dilation, 50% effacement, and high station. heart rate baseline is 135 bpm with moderate variability and accelerations present. Plan: - Admit to inpatient for induction of labor - Obtain preeclampsia labs - Initiate GBS prophylaxis as per protocol - Implement continuous monitoring - Begin cervical ripening using ripening agent - Proceed to oxytocin when Munoz's score is favorable - Order CBC, RPR, type and screen, and pre-eclampsia panel - Provide pain management as per protocol, including epidural when desired - Closely monitor blood pressure (2) Migraine: Status: Acute (3) Grand multiparity: Status: Acute
[2024-07-13] MEDS: Ampicillin Inj 1,000 MG in SODIUM CHLORIDE 0.9% (Popper) 50 ML 50 MG IV (21:10)
[2024-07-14] VITALS (40 sets, daily range): BP systolic 126–162; BP diastolic 86–103; PULSE 65–97; RESP 16–19; TEMP 3.4–38.1; O2SAT 93–100
[2024-07-14] MEDS: MINERAL OIL 30 ML UDC TOP (00:33)
[2024-07-14] MEDS: IBUPROFEN TAB 400 MG TABLET 800 MG PO ×2 (00:33→11:29)
[2024-07-14] MEDS: BENZO/LANO/ALOE (Dermoplast) 60 GM CAN 1 SPRAY TOP (00:33)
[2024-07-14] MEDS: OXYTOCIN in NS 20 units 20 UNIT/1,000 ML BAG 125 UNIT IV (00:34)
[2024-07-14] MEDS: MISOPROSTOL 200 mCg TABLET 800 MCG PR (00:37)
--- NOTE | 2024-07-14 00:51 | OBDSUM_ITS ---
Data (Schumacher) Data Hx Section: No Maternal Blood Type: B Pos Rubella Titre: Positive RPR: Non-reactive Labs: Positive: Group Beta Strep and Negative: RPR, Hepatitis B, HIV, Chlamydia and Gonorrhea : 7 Term: 5 : 0 Livin Abortions: Spontaneous & Theraputic: 1 Delivery Data (Schumacher) Labor Data Initiation of labor: Induction Induction/Augmentation Agent: Cytotec-PO and Artificial ROM ROM date: 07/13/24 ROM time: 20:14 Amniotic membrane rupture type: Artificial Amniotic fluid description: Clear Delivery Data EDC: 07/14/24 EDC calculated by:: LMP/early US confirmation Date of arrival to unit: 07/13/24 Onset of labor date: 07/13/24 Onset of labor time: 20:14 Complete dilation date: 07/14/24 Complete dilation time: 00:11 [place] delivery date: 07/14/24 delivery time: 00:23 Gestational age (weeks): 37 Gestational age (days): 5 Placenta delivery date: 07/14/24 Placenta delivery time: 00:30 Stage 1 total time: Labor - Stage 1 Duration 3 hours and 57 minutes Delivered by: Beverly Almeida (OB Clinic) Delivery nurse: char Parra nurse: edmundo lam C 13 Catapult Operator at delivery: No Support person(s) at delivery: FOB at delivery Delivery Method Delivery method: Normal Vaginal Delivery Presentation: Vertex position: OA Anesthesia Type Anesthesia Type: Epidural Delivery Room Medications Delivery room medications: Pitocin 20 u IV and Cytotec 800 NH Placenta Placenta delivery description: Spontaneous Cord blood sent to lab: Yes cord blood collection: Cord Blood Type Episiotomy Episiotomy description: None EBL Estimated blood loss (ml): 150 Umbilical Cord cord description: 3 Vessels, Nuchal Cord, Loose and Reduced Additional Procedures Patient progressed to complete and pushed through 2 contractions delivering a liveborn male at 0023. Findings liveborn male in the CANDIS preceding presentation with a loose nuchal cord x 1 no meconium Apgars were 9 and 9 weight was 3305 g or approximately 6 pounds 12 ounces the placenta was complete spontaneous grossly normal delivering approximately 3 minutes after the baby delivered. After delivery patient has some brisk bleeding which was managed with 800 mcg of Cytotec. After this her bleeding was noted to be scant. Complications were none condition both mom and infant were in stable condition in the delivery room Complications Complications: None Data (Schumacher) Data order: 1 [place]'s gender: Male Identification band number: [id number] weight (gms): 3055 g Weight (pounds): 6735 lbs and 1.9 ozs [place] length: 52 m 1 minute: 9 5 minutes: 9
[2024-07-14] MEDS: LABETALOL 100 MG TABLET 200 MG PO ×2 (05:05→16:51)
[2024-07-14] MEDS: ACETAMINOPHEN 325 MG TABLET 650 MG PO (05:07)
[2024-07-14] MEDS: HYDROcodone/APAP 5/325 TABLET 1 TAB PO ×2 (08:04→20:30)
--- NOTE | 2024-07-14 09:06 | PD.LDDS ---
DS: Providers Provider Date of admission: 07/13/24 05:39 Primary care physician: Naren Conley MD Admitting Provider: Joe Graham MD Attending Provider on Admission: Zac Carter MD Consults: 07/14/24 04:43 Referral Routine Comment: Attending Provider on DC: Zac Carter MD Discharging Provider: Zac Carter MD DS: Diagnosis Problem List Completed Was Problem List Reviewed/Reconciled?: Yes Summary/Hosp Course Brief History: Hannah Best is a 34-year-old patient presenting for induction of labor at 37 weeks and 4 days gestation. She has a history of chronic hypertension with repeated hospital admissions for intractable headache in her third trimester. The patient has been co-managed between the current obstetrics team and the maternal- medicine office at [facility]. She has been taking labetalol 200 mg BID for hypertension management. Occasionally, she has complained of shortness of breath, which has been attributed to the beta-susanne medication. Despite this, the patient consistently reports that the baby has been very active. Ms. Best's last admission to labor and delivery was on June 24, and she has had multiple triage visits for the same reason since then. She initiated her care at [facility]. The patient's most recent hospital admission for intractable headache occurred on June 24, with multiple subsequent triage visits for the same complaint. Medications and Supplements - Labetalol 200 mg by mouth twice daily - For hypertension - Occasionally causes shortness of breath Review of Systems General: Negative for fever, chills, fatigue. Cardiovascular: Negative for chest pain. Respiratory: Positive for occasional shortness of breath. Neurological: Positive for intractable headache in 3rd trimester. Peripartum Data Delivery Method: Normal Vaginal Delivery Episiotomy Description: None Time Spent with Patient Time attestation: Total time spent providing and/or coordinating discharge services: Exam Vital Signs Temp Pulse Resp BP Pulse Ox O2 Del Method 97.8 F 88 19 146/96 H 98 Room Air 07/14/24 08:00 07/14/24 08:00 07/14/24 08:00 07/14/24 08:00 07/14/24 08:00 07/14/24 08:00 Discharge Plan Plan Patient Disposition: HOME (Self Care) Patient condition on transfer: Stable Prescriptions/Referrals Prescriptions/Med Rec: New ibuprofen 600 mg tablet 600 mg PO Q6H PRN (Reason: pain) Qty: 30 0RF Continued labetalol 200 mg tablet 200 mg PO BID Qty: 60 0RF PNV cmb#95-ferrous fumarate-FA [] 28 mg iron- 800 mcg tablet 1 tab PO QDAY Qty: 90 0RF Discontinued aspirin 81 mg Tablet,Delayed Release (Dr/Ec) 81 mg PO QDAY Referrals: Naren Conley MD [Primary Care Provider] - Patient/Caregiver Discharge Instructions Print Language: Togolese Stand Alone Forms: Sneha Award Info., Patient Portal Info Letter Planned Discharge Date 07/14/24
[2024-07-14 10:33] LABS: Basophils % (Auto) 0 % (0-2.5); Eosinophils % (Auto) 0 % (0-10); Immature Granulocytes % (Auto) 0 % (0-0); Immature Granulocytes Auto 0.07 Thou/mm3 (0.00-0.00); Lymphocytes # (Auto) 2.3 Thou/mm3 (1.0-4.8); Lymphocytes % (Auto) 14 % (10-50); Mean Corpuscular HGB Conc 34.5 g/dl (31.0-37.0); Mean Corpuscular Hemoglobin 31.5 pg (25.0-35.0); Mean Corpuscular Volume 92 fL (80-100); Monocytes # (Auto) 1.3 Thou/mm3 (0.0-0.8); Monocytes % (Auto) 8 % (0-12); Neutrophils # (Auto) 12.1 Thou/mm3 (1.8-7.7); Neutrophils % (Auto) 77 % (37-80); Nucleated Red Blood Cell % 0 /100 WBC (0); Platelet Count 158 Thou/mm3 (140-440); Red Blood Count 3.17 Miln/mm3 (4.00-5.20); White Blood Count 15.9 Thou/mm3 (3.6-11.0)
[2024-07-14] MEDS: HYDROcodone/APAP 5/325 TABLET 2 TAB PO (14:12)
[2024-07-15] MEDS: IBUPROFEN TAB 400 MG TABLET 800 MG PO (00:03)
[2024-07-15 03:57] VITALS: BP 127/78; PULSE 89; RESP 16; TEMP 36.6; O2SAT 97
[2024-07-15] MEDS: HYDROcodone/APAP 5/325 TABLET 1 TAB PO (04:09)
[2024-07-15 06:00] VITALS: BP 129/86; PULSE 80
[2024-07-15 06:07] VITALS: BP 129/86; PULSE 80
[2024-07-15 08:00] VITALS: BP 121/78; PULSE 73; RESP 16; TEMP 36.6; O2SAT 97
--- NOTE | 2024-07-15 09:45 | PD.LDPPPRG ---
Subjective Subjective Interval history: Delivery type: Patient doing well this morning. No acute complaints. Ambulating, tolerating p.o. and voiding without difficulty. HTN/Pre-Eclampsia screen: No chest pain, shortness of breath, headache, visual changes, epigastric or right upper quadrant pain. Breast-feeding, lochia diminishing. Bowel: Flatus+/ BM+ Exam Vital Signs Temp Pulse Resp BP Pulse Ox O2 Del Method 97.9 F 73 16 121/78 97 Room Air 07/15/24 08:00 07/15/24 08:00 07/15/24 08:00 07/15/24 08:00 07/15/24 08:00 07/15/24 08:00 Constitutional Constitutional: no acute distress Routine HEENT Exam Head: Present normocephalic and atraumatic Eye: Present EOMI and PERRL ENT: Present mucous membranes moist Routine Neck Exam Neck: Present supple and trachea midline Routine Respiratory Exam Respiratory: Present chest non-tender, lungs clear, normal breath sounds and no resp distress Routine Cardiovascular Exam Cardiovascular: Present RRR Routine Abdominal Exam Abdominal: Present soft and normoactive bowel sounds Routine Extremities Exam Extremities: Present full ROM Routine Skin Exam Skin: Present intact, dry and warm Routine Neurological Exam Neurological: Present alert, oriented X3 and CN II-XII intact Routine Psychiatric Exam Psychiatric: Present normal affect and normal thought process Objective Labs 07/14/24 10:12 07/13/24 06:37 Labs: Laboratory Results - last 24 hr 07/14/24 10:12 WBC 15.9 H D RBC 3.17 L Hgb 10.0 L Hct 29.0 L MCV 92 MCH 31.5 MCHC 34.5 RDW Std Deviation 42.0 Plt Count 158 Neut % (Auto) 77 Lymph % (Auto) 14 [place] % (Auto) 8 Eos % (Auto) 0 Baso % (Auto) 0 Neut # (Auto) 12.1 H Lymph # (Auto) 2.3 [place] # (Auto) 1.3 H Eos # (Auto) 0.0 Baso # (Auto) 0.0 Immature Gran # (Auto) 0.07 H Absolute Nucleated RBC 0.00 Immature Gran % 0 Nucleated RBC % 0 Assessment & Plan Problem List (1) Gestational hypertension: Status: Acute (2) Migraine: Status: Acute (3) Grand multiparity: Status: Acute Assessment and plan: PPD/POD#2 1. Continue routine care 2. Transition to PO meds. 3. Encourage to ambulate/ breast-feed 4. Anticipate discharge home today. Time Spent With Patient Time: Total time spent is greater than 50% in coordination of care (as documented) at patient's floor/unit and/or counseling patient:
--- NOTE | 2024-07-15 09:45 | PD.LDDS ---
DS: Providers Provider Date of admission: 07/13/24 05:39 Primary care physician: Naren Conley MD Admitting Provider: Joe Graham MD Attending Provider on Admission: Zac Carter MD Consults: 07/14/24 04:43 Referral Routine Comment: Attending Provider on DC: Joe Graham MD Discharging Provider: Joe Graham MD DS: Diagnosis Discharge Diagnosis (1) Grand multiparity: Status: Acute (2) Gestational hypertension: Status: Acute (3) Migraine: Status: Acute Problem List Completed Was Problem List Reviewed/Reconciled?: Yes Summary/Hosp Course Brief History: Hannah Best is a 34-year-old patient presenting for induction of labor at 37 weeks and 4 days gestation. She has a history of chronic hypertension with repeated hospital admissions for intractable headache in her third trimester. The patient has been co-managed between the current obstetrics team and the maternal- medicine office at [facility] in [facility]. She has been taking labetalol 200 mg BID for hypertension management. Occasionally, she has complained of shortness of breath, which has been attributed to the beta-susanne medication. Despite this, the patient consistently reports that the baby has been very active. Ms. Best's last admission to labor and delivery was on June 24, and she has had multiple triage visits for the same reason since then. She initiated her care at [facility]. The patient's most recent hospital admission for intractable headache occurred on June 24, with multiple subsequent triage visits for the same complaint. Medications and Supplements - Labetalol 200 mg by mouth twice daily - For hypertension - Occasionally causes shortness of breath Review of Systems General: Negative for fever, chills, fatigue. Cardiovascular: Negative for chest pain. Respiratory: Positive for occasional shortness of breath. Neurological: Positive for intractable headache in 3rd trimester. Peripartum Data Delivery Method: Normal Vaginal Delivery Episiotomy Description: None Time Spent with Patient Time attestation: Total time spent providing and/or coordinating discharge services: Exam Vital Signs Temp Pulse Resp BP Pulse Ox O2 Del Method 97.9 F 73 16 121/78 97 Room Air 07/15/24 08:00 07/15/24 08:00 07/15/24 08:00 07/15/24 08:00 07/15/24 08:00 07/15/24 08:00 Discharge Plan Plan Patient Disposition: HOME (Self Care) Patient condition on transfer: Stable Prescriptions/Referrals Prescriptions/Med Rec: New ibuprofen 600 mg tablet 600 mg PO Q6H PRN (Reason: pain) Qty: 30 0RF Continued labetalol 200 mg tablet 200 mg PO BID Qty: 60 0RF PNV cmb#95-ferrous fumarate-FA [] 28 mg iron- 800 mcg tablet 1 tab PO QDAY Qty: 90 0RF Discontinued aspirin 81 mg Tablet,Delayed Release (Dr/Ec) 81 mg PO QDAY Referrals: Naren Conley MD [Primary Care Provider] - Joe Graham MD [Physician] - Patient/Caregiver Discharge Instructions Other Discharge Activity Instructions:: Follow up with OB in 6 weeks Education Materials: After a Vaginal , Breast Care After , Migraines and Cluster Headaches, Headache Migraine Triggers Prevent, Gestational Hypertension Print Language: Turkish Stand Alone Forms: Sneha Award Info., Patient Portal Info Letter Discharge Order Discharge Orders: Discharge (Routine); Ordered 07/15/24 Ordered By: Joe Graham Planned Discharge Date 07/15/24
--- NOTE | 2024-07-15 15:42 | PC.SS ---
YARD DEMURRAGE CLERK conducted bedside contact with the patient to address nursing referral indicating patient possessed history of THC.? Toxicology screening at admission negative.? YARD DEMURRAGE CLERK introduced self and role.? YARD DEMURRAGE CLERK discussed basis of referral.? Patient reports past use of THC.? Patient reports no use of THC during current .? Infant, Vivek; is the patient?s 6th child.? delivered naturally.? Other children ages: 13, 12, 9, 8, 5 and .? Patient plans on combo feeding infant.? [facility] provided by [facility].? Patient is receiving WIC, TANF and SNAP.? Patient denies history of alcohol/drug abuse.? Patient denies history of domestic violence.? Patient denies history of CWS.? FOB, Vivek Dorsey; to be involved in the rearing of the .? Patient denies possessing a history of mental health, reports no current possession of depression or anxiety.? Patient has access to appropriate supplies and equipment; to include a car seat.? FOB will provide transportation upon discharge.? Patient describes possessing support system consisting of FOB and extended family.? No further intervention required at this time, social media marketer will be available to address any further concerns.? YARD DEMURRAGE CLERK updated bedside nurse.?
== END 2024-07-15 12:20 | disposition home or self-care (01) | DRG 560 ==
LOC: S4SX 07:25 → S4NX 07-14 03:00
PROVIDERS: Obstetrics & Gynecology; Student in an Organized Health Care Education/Training Program; Admitting Provider Obstetrics & Gynecology; PCP Family Medicine; Visit Provider Specialist
DX: O13.4 Gestational [pregnancy-induced] hypertension without significant proteinuria, complicating childbirth (principal); Z37.0 Single live birth; Z3A.37 37 weeks gestation of pregnancy; O69.81X0 Labor and delivery complicated by cord around neck, without compression, not applicable or unspecified
CPT/HCPCS: 36415; 76815; 80053; 81001; 82570; 84156; 84550; 85025; 85384; 85610; 85730; 86780; 86850; 86900; 86901; 86923; J0290; J2590; J2795; J3010; J3490; J7030; J7120; S0191; A9270; J1920

== ENCOUNTER 2025-01-19 10:28 | Emergency (ER) | payer MEDICAID, SELFPAY ==
[2025-01-19 10:29] VITALS: BMI 22.1
[2025-01-19 10:49] VITALS: BP 153/91; PULSE 89; RESP 17; TEMP 36.7; O2SAT 97
[2025-01-19 10:53] VITALS: BP 141/103
--- NOTE | 2025-01-19 10:53 | XR_ITS ---
Examination: Shoulder, left, 3 views Technique: Shoulder AP internal rotation, AP external rotation, Y view shoulder, 3 views Exam date and time : January 19, 2025, 1105 hours INDICATIONS: Patient fell today with injury to the shoulder, shoulder pain. FINDINGS: No shoulder fracture or dislocation 6 mm AC joint separation No foreign body IMPRESSION: 6 mm AC joint separation
--- NOTE | 2025-01-19 10:53 | XR_ITS ---
Examination: CT brain head without contrast. 2-D sagittal coronal reconstructions Date and time of exam: January 19, 2025, 1159 hours INDICATIONS: Syncopal episode with fall today head pain CTDI: vol (mGy): 46.8 DLP: (mGycm): 900 Technique: Multiple CT axial sections of the brain have been obtained, 5 mm slice thickness. Contrast has not been administered. 2-D sagittal, coronal reconstructions have been obtained Low dose protocols were performed. One or more of the following dose reduction techniques were used; automated exposure control, adjustment of the mA and/or KV according to patient size, use of iterative reconstruction technique. Findings: No significant ventricular enlargement. Intra-axial or extra-axial hemorrhage density is not seen. No mass effect or midline shift Basal cisterns are not remarkable. Fourth ventricle is midline. Cranial vault intact. Impression: Negative for acute hemorrhage, mass effect or midline shift
--- NOTE | 2025-01-19 10:53 | XR_ITS ---
Examination: Complete OB ultrasound, less than 14 weeks, transabdominal Date and time of exam: January 19, 2025, 11:28 a.m. INDICATIONS: Positive test, patient fell yesterday with injury to the pelvis Technique: Obstetrical ultrasound images less than 14 weeks performed via transabdominal imaging Findings: A normal shaped single intrauterine gestation is present in the uterus. CRL 0.4 cm corresponds to 6 weeks 0 days gestational age Cardiac motion 113 bpm Ultrasonographic survey of visible and placental structures unremarkable. Amniotic fluid volume appears appropriate for this estimated gestational age. Right ovary 2.6 cm arterial flow Left ovary 3.7 cm arterial flow IMPRESSION: Viable intrauterine gestation 6 weeks 0 days.
--- NOTE | 2025-01-19 10:54 | EKG_ITS ---
[facility] Test Date: 2025-01-19 Pat Name: BASSAM DAVIS Department: Room: - Gender: Female Business Development Consultant: : 1990 Requested By: Ryne Killian (CEDRIC) Order Number: [id number] Reading MD: Ryne Killian (ARCHITECTURAL ENGINEERING TEACHER) Measurements Intervals [place] Rate: 83 P: 70 IA: 128 QRS: 62 QRSD: 95 T: 26 QT: 345 QTc: 406 Interpretive Statements SINUS RHYTHM NONSPECIFIC T-WAVE ABNORMALITY Compared to ECG 06/01/2024 19:30:51 T-wave abnormality now present /store/S0/[id number].pdf
--- NOTE | 2025-01-19 10:54 | PD.EDRME ---
Rapid Medical Screening Exam RME Arrival date/time: 01/19/25 10:28 34-year-old female presents to the emergency department today stating that she had a syncopal episode last night patient reports left shoulder pain head pain and nausea today patient reports being Chief Complaint: Fall Time Seen by Provider: 01/19/25 11:11 Vital signs: Vital Signs Temperature 98.1 F 01/19/25 10:49 Pulse Rate 89 01/19/25 10:49 Respiratory Rate 17 01/19/25 10:49 Blood Pressure 153/91 H 01/19/25 10:49 Pulse Oximetry (%) 97 01/19/25 10:49 Oxygen Delivery Method Room Air 01/19/25 10:49 Vital signs reviewed by provider: Yes Exam: On exam patient well-appearing does not appear ill or toxic no acute distress Clinical Impression: Labs and imaging ordered as well as EKG
[2025-01-19 11:31] LABS: Basophils # (Auto) 0.0 Thou/mm3 (0.0-0.2); Basophils % (Auto) 0 % (0-2.5); Eosinophils # (Auto) 0.0 Thou/mm3 (0.0-0.5); Eosinophils % (Auto) 0 % (0-10); Hematocrit 34.7 % (36.0-46.0); Hemoglobin 11.4 g/dL (12.0-16.0); Immature Granulocytes Auto 0.04 Thou/mm3 (0.00-0.00); Lymphocytes # (Auto) 1.9 Thou/mm3 (1.0-4.8); Lymphocytes % (Auto) 18 % (10-50); Mean Corpuscular HGB Conc 32.9 g/dl (31.0-37.0); Mean Corpuscular Hemoglobin 30.4 pg (25.0-35.0); Mean Corpuscular Volume 93 fL (80-100); Monocytes # (Auto) 1.1 Thou/mm3 (0.0-0.8); Monocytes % (Auto) 11 % (0-12); Neutrophils # (Auto) 7.6 Thou/mm3 (1.8-7.7); Neutrophils % (Auto) 71 % (37-80); Nucleated Red Blood Cell # 0.00 Thou/mm3 (0.00-0.00); Nucleated Red Blood Cell % 0 /100 WBC (0); Platelet Count 285 Thou/mm3 (140-440); RDW Standard Deviation 46.9 fL (36.4-46.3); Red Blood Count 3.75 Miln/mm3 (4.00-5.20); White Blood Count 10.7 Thou/mm3 (3.6-11.0)
--- NOTE | 2025-01-19 12:00 | EDNOTE_ITS ---
ED Fall Injury RME/HPI General Chief Complaint: Fall Stated Complaint: SHOULDER PAIN S/P FALL, +PREG Time Seen by Provider: 01/19/25 11:11 Arrival date/time: 01/19/25 10:28 RME / HPI RME / HPI Narrative: 01/19/25 10:28 34-year-old female presents to the emergency department today stating that she had a syncopal episode last night patient reports left shoulder pain head pain and nausea today patient reports being DR. CARY MAIN ED EVALUATION 34 year old female who is currently of unknown gestation (A1), gestational hypertension presents to the ED for evaluation after syncopal episod e today. Sates she woke up at 03:00 AM due to feeling unwell and walked to the restroom. States after using the restroom she walked to the kitchen to get glass of water when she noted to feel dizzy and vision blacking out . States she woke up on the kitchen floor next to the fridge with pain to her left shoulder and left side of face. Patient mentioned she was not feeling well yesterday. States she felt short of breath, blood pressure was elevated (SBP 179), and had a headache. Patient states she does not recall her last menses. States she had two days of vaginal bleeding October. Delivered her last child on 07/14/2024. Exam: On exam patient well-appearing does not appear ill or toxic no acute distress Impression: Labs and imaging ordered as well as EKG Related Data Previous Rx's ?Medication ?Instructions ?Recorded vit no.95-ferrous 1 tab PO QDAY #90 tabs 11/30 08/23 fumarate 28 mg-folic acid 800 mcg tablet () labetalol 200 mg tablet 200 mg PO BID #60 tabs 06/27 ibuprofen 600 mg tablet 600 mg PO Q6H PRN pain #30 t abs 07/14/24 labetalol 100 mg tablet 100 mg PO BID #60 tabs 01/19 Allergies Allergy/AdvReac Type Severity Reaction Status Date / Time No Known Allergies Allergy Unknown Verified 07/13/24 18:38 Review of Systems Review of Systems Systems Reviewed: All systems reviewed, normal except as documented Past Medical History Past Medical History CARDIAC: Positive Cardiac Disorders and Hypertension REPRODUCTIVE: Positive Previous Pregnancies HEMATOLOGIC: Positive Blood Disorders and Anemia OTHER HISTORY: Positive Blood Transfusions Social History SMOKING STATUS: Current every day smoker SECOND HAND EXPOSURE: No ED Exam Narrative Physical exam: Constitutional: Awake, alert, nontoxic, no acute distress HEENT: Normocephalic, atraumatic, extraocular movements intact. Neck: Supple CV: Regular rate and rhythm, no murmurs/rubs/gallops Lungs: Clear to auscultation BL, no respiratory distress. Abd: Soft, NT, ND, no HSM noted to palpation Extremities: No deformities, no edema noted, contusion and faint bruise posterior left shoulder, right shoulder with good ROM, mild tenderness left lateral epicondylar region with mild bruising, no swelling, ROM intact, distal perfusion and mobility intact. ROM intact of the left upper shoulder though painful with ROM. Neuro: AAOx3, CN 2-12 GIBL, no acute neuro deficit noted. Skin: Warm, dry, intact Course Course Course Narrative: 1350h: I spoke with OBGYN Dr. Kumar. Discussed patients PMHx, HPI, ED course, exam findings, labs, and radiology results. Recommends starting the patient on 100mg Labetalol BID and have her follow up in clinic. 1356h: Patient remains clinically stable throughout the emergency department visit. We reviewed all the results, analysis, and treatment plans. Patient is amenable to discharge. Given a sling for her left shoulder injury as well as Lidoderm patch. To follow-up with PCP and OBGYN outpatient. Strict return precautions were outlined. Quality Measures none Orders Category Date Time Status EKG (ED ONLY) *Do not use* NOW Care 01/19/25 10:54 Completed sling [Splint / Immobilizer] STAT Care 01/19/25 13:[address] head/brain wo con Stat Exams 01/19/25 10:53 Completed EKG (ED Only) Stat Exams 01/19/25 10:54 Draft US OB <= 14 weeks fetus Stat Exams 01/19/25 10:53 Completed XR shoulder LT min 2V Stat Exams 01/19/25 10:53 Completed Beta HCG,Quantitative Stat Lab 01/19/25 11:04 Completed CBC Stat Lab 01/19/25 11:04 Completed Comprehensive Metabolic Panel Stat Lab 01/19/25 11:04 Completed Mag [Magnesium] Stat Lab 01/19/25 11:04 Completed Troponin I Stat Lab 01/19/25 11:04 Completed Lidocaine 5% Patch Med 01/19/25 13:55 Discontinued 1 patch TOP X1 ONE Vital Signs Vital signs: Vital Signs Temperature 98.1 F 01/19/25 10:49 Pulse Rate 89 01/19/25 10:49 Respiratory Rate 17 01/19/25 10:49 Blood Pressure 153/91 H 01/19/25 10:49 Pulse Oximetry (%) 97 01/19/25 10:49 Oxygen Delivery Method Room Air 01/19/25 10:49 Pulse ox is 97% on room air which is adequate. Fall MDM Narrative MDM Narrative:: Melida Ponce am scribing for and in the presence of Dr. Cary. Patient data External records reviewed:: [facility] previous records Clinical information provided by:: patient Social determinants that could affect healthcare access:: none Patient has the following chronic illnesses:: currently of unknown gestation (A1), gestational hypertension How is presenting disease/condition affected by chronic disease/condition?: exacerbated by Evaluation data The following diagnostics were reviewed and interpreted by me:: lab results, radiology exam(s) and EKG tracing(s) (EKG @ 10:54h, interpreted by me, normal sinus rhythm, rate 83, no STEMI. ) Lab and/or radiology exams considered but not ordered:: None Interpretation Summary: Ordering Physician: Ryne Killian NP, NP Date of Service: 01/19/25 Procedure(s): US OB <= 14 weeks fetus Accession Number(s): [id number] cc: Ryne Killian NP, NP; Naren Conley MD; Dayron Sylvester MD~ Examination: Complete OB ultrasound, less than 14 weeks, transabdominal Date and time of exam: January 19, 2025, 11:28 a.m. INDICATIONS: Positive test, patient fell yesterday with injury to the pelvis Technique: Obstetrical ultrasound images less than 14 weeks performed via transabdominal imaging Findings: A normal shaped single intrauterine gestation is present in the uterus. CRL 0.4 cm corresponds to 6 weeks 0 days gestational age Cardiac motion 113 bpm Ultrasonographic survey of visible and placental structures unremarkable. Amniotic fluid volume appears appropriate for this estimated gestational age. Right ovary 2.6 cm arterial flow Left ovary 3.7 cm arterial flow IMPRESSION: Viable intrauterine gestation 6 weeks 0 days. Dictated By: Dayron Sylvester MD Signed By: <Electronically signed by Dayron Sylvester MD in OV> 01/19/25 1151 Ordering Physician: Constantin MEDRANO)Ryne NP Date of Service: 01/19/25 Procedure(s): CT head/brain wo con Accession Number(s): [id number] cc: Constantin MEDRANO),Ryne STEELE; Naren Conley MD; Dayron Sylvester MD~ Examination: CT brain head without contrast. 2-D sagittal coronal reconstructions Date and time of exam: January 19, 2025, 1159 hours INDICATIONS: Syncopal episode with fall today head pain CTDI: vol (mGy): 46.8 DLP: (mGycm): 900 Technique: Multiple CT axial sections of the brain have been obtained, 5 mm slice thickness. Contrast has not been administered. 2-D sagittal, coronal reconstructions have been obtained Low dose protocols were performed. One or more of the following dose reduction techniques were used; automated exposure control, adjustment of the mA and/or KV according to patient size, use of iterative reconstruction technique. Findings: No significant ventricular enlargement. Intra-axial or extra-axial hemorrhage density is not seen. No mass effect or midline shift Basal cisterns are not remarkable. Fourth ventricle is midline. Cranial vault intact. Impression: Negative for acute hemorrhage, mass effect or midline shift Dictated By: Dayron Sylvester MD Signed By: <Electronically signed by Dayron Sylvester MD in OV> 01/19/25 1224 Ordering Physician: Constantin MEDRANO)Ryne NP Date of Service: 01/19/25 Procedure(s): XR shoulder LT min 2V Accession Number(s): [id number] cc: Constantin (CEDRIC),Ryne STEELE; Naren Conley MD; Dayron Sylvester MD~ Examination: Shoulder, left, 3 views Technique: Shoulder AP internal rotation, AP external rotation, Y view shoulder, 3 views Exam date and time : January 19, 2025, 1105 hours INDICATIONS: Patient fell today with injury to the shoulder, shoulder pain. FINDINGS: No shoulder fracture or dislocation 6 mm AC joint separation No foreign body IMPRESSION: 6 mm AC joint separation Dictated By: Dayron Sylvester MD Signed By: <Electronically signed by Dayron Sylvester MD in OV> 01/19/25 1120 Medications / Prescriptions Medications or Prescriptions considered but not ordered:: None Medication administrations:: Medication Administration History Discontinued Medications Lidocaine (Lidocaine 5% 1 Patch) 1 patch TOP X1 ONE Stop: 01/19/25 13:56 Last Admin: 01/19/25 14:05 Dose: 1 patch Documented By: GB See above Consultations Consultation(s) initiated? (list below): Yes Consultation #1 (Physician, Specialty, Details): See course Diagnosis Fall Differential Diagnosis: syncope and compression fracture Most likely diagnosis given after review of the tests above:: Fall Syncope Shoulder separation First timester Admission Indicated Admission indicated?: not indicated Admission Request Was there a request for admission?: No Disposition Plan Disposition Plan: Discharge Discharge Attestation Discharge Attestation: The patient and all family members were given an opportunity to ask questions and understood the discharge instructions. Discharge instructions specifically effects, indications for sooner follow up or return to the emergency department, and the expected course of current diagnosis. Patient condition: Stable Discharge Plan Plan Patient Disposition: HOME (Self Care) Patient condition on transfer: Stable Prescriptions/Referrals Prescriptions/Med Rec: New labetalol 100 mg tablet 100 mg PO BID Qty: 60 0RF No Action labetalol 200 mg tablet 200 mg PO BID Qty: 60 0RF ibuprofen 600 mg tablet 600 mg PO Q6H PRN (Reason: pain) Qty: 30 0RF PNV no.95-ferrous fumarate-FA [] 28 mg iron- 800 mcg tablet 1 tab PO QDAY Qty: 90 0RF Referrals: Naren Conley MD [Primary Care Provider, Family Practice] - In 1 week Problem List Clinical Impression: Fall, Syncope, Shoulder separation, First trimester Patient/Caregiver Discharge Instructions Education Materials: Causes of Syncope, First Trimester, ED Shoulder Sprain, ED Sling and Swathe Additional Instructions: May take Tylenol 1 g every 6 hours as needed for pain. May also use a [place] balm or lidocaine patch to the affected area as needed. Print Language: Tamazight Stand Alone Forms: Sneha Award Info., Patient Portal Info Letter
[2025-01-19 12:35] LABS: Alanine Aminotransferase 8 U/L (10-49); Albumin, Serum 5.0 gm/dL (3.5-5.0); Albumin/Globulin Ratio 2.4 (1.2-2.2); Alkaline Phosphatase 61 U/L (46-116); Anion Gap 9 (7-16); Aspartate Amino Transferase 16 U/L (0-34); BUN/Creatinine Ratio 11 Ratio (12-20); Bilirubin,Total 0.7 mg/dL (0.3-1.2); Blood Urea Nitrogen 8 mg/dL (9-23); Calcium 9.1 mg/dL (8.3-10.6); Calcium (Corrected) 9.1 mg/dL (8.5-10.1); Carbon Dioxide 23.6 mMol/L (20.0-31.0); Chloride 106 mMol/L (98-107); Creatinine (Component) 0.7 mg/dL (0.6-1.3); Estimated Creatinine Clearance 95.4 mL/min (>60); Globulin 2.1 gm/dL (2.3-3.5); Glucose 103 mg/dL (74-106); Magnesium 2.0 mg/dL (1.6-2.6); Osmolality,Calculated 275 (275-295); Potassium 3.8 mMol/L (3.4-5.1); Sodium 139 mMol/L (136-145); Total Protein 7.1 gm/dL (5.7-8.2); Troponin I < 0.002 ng/mL (0.0-0.045); eGFR > 60 See Note
[2025-01-19 12:59] LABS: Beta HCG,Quantitative 61993 mIU/mL (<5.0)
[2025-01-19 13:43] VITALS: BP 123/81; PULSE 61; RESP 18; TEMP 36.9; O2SAT 99
[2025-01-19] MEDS: LIDOCAINE 5% 1 PATCH TOP (14:05)
== END 2025-01-19 14:10 | disposition home or self-care (01) ==
PROVIDERS: Nurse Practitioner Primary Care; Emergency Provider Family Medicine; PCP Family Medicine
DX: O9A.211 Injury, poisoning and certain other consequences of external causes complicating pregnancy, first trimester (principal); O13.9 Gestational [pregnancy-induced] hypertension without significant proteinuria, unspecified trimester; O20.9 Hemorrhage in early pregnancy, unspecified; S39.93XA Unspecified injury of pelvis, initial encounter; S43.109A Unspecified dislocation of unspecified acromioclavicular joint, initial encounter; W19.XXXA Unspecified fall, initial encounter; Y92.000 Kitchen of unspecified non-institutional (private) residence as the place of occurrence of the external cause; Z3A.01 Less than 8 weeks gestation of pregnancy
CPT/HCPCS: 36415; 70450; 73030; 76801; 80053; 83735; 84484; 84702; 85025; 93005; 99283; J3490